=== PATIENT | female | born 1965 | race Caucasian/White ===

== ENCOUNTER 2016-03-16 04:05 | Observation (INO) | payer BC ==
[2016-03-16] MEDS ORDERED: Sodium Chloride 0.9% 10 ML Syringe FLUSH PRN ×2 (04:53→17:22)
[2016-03-16] MEDS ORDERED: Ondansetron 4 MG/2 ML SDV IVPUSH ONE (04:57)
--- NOTE | 2016-03-16 04:58 | EDM.PDOC ---
ED HPI GI/ABDOMINAL - General Chief Complaint: Abdominal Pain Stated Complaint: Nausea/vomiting, diarrhea, abdominal pain Time Seen by Provider: 03/16/16 04:39 Source of Information: Reports: Patient, Family History Limitations: Reports: No limitations - History of Present Illness INITIAL COMMENTS - FREE TEXT/NARRATIVE: Patient reports abdominal pain since March 14. She is saying that it is getting worse and she is now nauseated with minimal emesis this morning. She has had prior bowel obstructions in the past. She states that after her hysterectomy she started having the obstructions. She denies fever, chills. Patient denies any other symptoms this am. Symptom Onset Date: 03/14/16 Timing/Duration: Reports: Gradual onset Location: periumbilical Quality: Reports: cramping Severity: moderate Improves with: Reports: defecating Worsens with: Reports: other (eating) Associated Symptoms (-Female): Reports: denies other symptoms - Related Data Allergies/ADRs: Allergies Allergy/AdvReac Type Severity Reaction Status Date / Time tramadol HCl [From Ultram] AdvReac Vomiting Verified 03/16/16 04:20 Home Meds: Home Meds Ascorbic Acid [C-500] 1,000 mg PO DAILY 03/20/15 [History] Aspirin [[place] Chewable Aspirin] 81 mg PO DAILY 03/20/15 [History] Cyclobenzaprine [Flexeril] 5 mg PO TID PRN 03/20/15 [History] Metoprolol Tartrate [Lopressor] 12.5 mg PO BID 03/20/15 [History] Nitroglycerin [Nitrostat] 0.4 mg SL Q5M PRN 03/20/15 [History] carBAMazepine [TEGretol XR] 400 mg PO DAILY 03/20/15 [History] Ondansetron [Zofran ODT] 4 mg PO Q8H PRN 12/08/15 [History] Prochlorperazine [Compazine] 5 mg PO Q8H PRN 12/08/15 [History] Past Medical History HEENT History: Reports: Impaired vision Cardiovascular History: Reports: High cholesterol, Hypertension, [place] Gastrointestinal History: Reports: Bowel obstruction Other Gastrointestinal 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 VITAMIN D DEFICIENCY - Past Surgical History Female Surgical History: Reports: Hysterectomy, Other (see below) Other Female Surgeries/Procedures: BREAST BIOPSY. BILATERAL SALPINGECTOMY, EXCISION OF UMBILICUS Other Musculoskeletal Surgeries/Procedures:: MUSCLE BIOPSY. BREAST BIOPSY. EXCISE LESION NECK/CHEST, SUBCUTAN (SEBACEOUS CYST, NECK Social & Family History - Family History Cardiac: Reports: OK - Tobacco Use Smoking Status *Q: Never Smoker - Caffeine Use Caffeine Use: Reports: Coffee, Soda, Tea - Recreational Drug Use Recreational Drug Use: No ED ROS GENERAL - Review of Systems Review Of Systems: See Below Constitutional: Reports: no symptoms HEENT: Reports: No symptoms Respiratory: Reports: no symptoms Cardiovascular: Reports: No symptoms Endocrine: Reports: no symptoms GI/Abdominal: Reports: Abdominal pain, Diarrhea, Nausea, Vomiting : Reports: no symptoms Musculoskeletal: Reports: no symptoms Skin: Reports: no symptoms Neurological: Reports: no symptoms Psychiatric: Reports: No symptoms Hematologic/Lymphatic: Reports: no symptoms Immunologic: Reports: no symptoms ED EXAM, GI/ABD - Physical Exam Exam: See Below Exam Limited By: No limitations General Appearance: alert, WD/WN, no apparent distress Eyes: bilateral: EOMI Ears: normal TMs Nose: normal inspection Throat/Mouth: Normal inspection, Normal oropharynx Head: atraumatic, normocephalic Neck: normal inspection, supple, non-tender, full range of motion Respiratory/Chest: no respiratory distress, lungs clear, normal breath sounds Cardiovascular: normal peripheral pulses, regular rate, rhythm, no edema, no gallop GI/Abdominal: tympanic bowel sounds, tenderness, distention Extremities: normal inspection, normal range of motion, non-tender, no pedal edema, normal capillary refill Neurological: alert, oriented, CN II-XII intact, normal cognition, normal gait Psychiatric: normal affect Skin Exam: Warm, Dry, Intact Lymphatic: no adenopathy Course - Vital Signs Last Recorded V/S: Last Vital Signs Temp 38.0 C 03/16/16 04:10 Pulse 90 03/16/16 04:10 Resp 16 03/16/16 04:10 BP 123/72 03/16/16 04:10 Pulse Ox 94 L 03/16/16 04:10 Departure - Departure Time of Disposition: 06:30 Disposition: Refer to Observation Condition: good Clinical Impression: Partial small bowel obstruction Forms: ED Department Discharge - Problem List & Annotations (1) Small bowel obstruction SNOMED Code(s): 146013288 Code(s): K56.69 - OTHER INTESTINAL OBSTRUCTION Status: Acute Priority: Medium Current Visit: Yes - Problem List Review Problem List Initiated/Reviewed/Updated: Yes - Assessment/Plan Plan: admit to observation - small bowel obstruction
[2016-03-16 05:38] LABS: BASOPHILS PERCENT AUTO 0.1 % (0.2-1.2); EOSINOPHILS PERCENT AUTO 0.2 % (0.0-4.0); HEMATOCRIT 43.7 % (33.0-47.0); HEMOGLOBIN 14.3 g/dL (12.0-16.0); LYMPHOCYTES PERCENT AUTO 6.5 % (25.0-50.0); MEAN CORPUSCULAR HEMOGLOBIN 29.7 pg (26.0-32.0); MEAN CORPUSCULAR HGB CONC 32.7 g/dL (32.0-36.0); MEAN CORPUSCULAR VOLUME 90.9 fL (78.0-93.0); MONOCYTES PERCENT AUTO 6.5 % (2.0-11.0); RDW CV 14.4 % (10.0-15.0); RED BLOOD CELL COUNT 4.81 x10^6/uL (4.00-5.50)
[2016-03-16] MEDS: Sodium Chloride 0.9% 1,000 ML IV SCH ×2 (05:55→06:46)
[2016-03-16 05:58] LABS: NEUTROPHILS PERCENT AUTO 86.7 % (50.0-80.0)
[2016-03-16 06:04] LABS: A/G RATIO 1.03; ALBUMIN 3.6 g/dL (3.4-5.0); ALKALINE PHOSPHATASE 204 U/L (46-116); AMYLASE 34 U/L (25-115); BILIRUBIN TOTAL 0.5 mg/dL (0.2-1.0); C-REACTIVE PROTEIN 4.7 mg/dL (<=0.9); CALCIUM 9.3 mg/dL (8.5-10.1); CHLORIDE,CL 106 mmol/L (98-107); CORRECTED CALCIUM 9.62 mg/dL (8.5-10.1); CREATININE 0.6 mg/dL (0.55-1.02); EST CRCL DRUG DOSING (CG) 87.73 mL/min; ESTIMATED GFR > 60; GLUCOSE RANDOM 131 mg/dL (74-106)
[2016-03-16 06:05] LABS: TROPONIN I < 0.017 ng/mL (<=0.056)
[2016-03-16] MEDS ORDERED: Ondansetron 4 MG/2 ML SDV IVPUSH PRN (07:36)
[2016-03-16] MEDS ORDERED: Metoclopramide 10 MG/2 ML SDV IVPUSH ONE (07:37)
[2016-03-16] MEDS ORDERED: Sodium Chloride 0.9% 100 ML IV ONE (07:45)
[2016-03-16] MEDS ORDERED: Iopamidol 612 MG/ML 100 ML Bottle IVPUSH ONE (07:45)
[2016-03-16] MEDS ORDERED: Morphine 4 MG/ML Syringe IVPUSH PRN (09:00)
[2016-03-16] MEDS: Sodium Chloride 0.9% with KCl 1,000 ML IV SCH ×2 (09:20→13:20)
[2016-03-16] MEDS ORDERED: Ondansetron 4 MG Tab.DIS PO PRN (11:21)
[2016-03-16] MEDS: carBAMazepine 100 MG Cap.ER PO SCH (11:42)
[2016-03-16] MEDS: Dicyclomine 10 MG Cap PO PRN (11:42)
[2016-03-16] MEDS: Metoprolol Tartrate 25 MG Tab PO SCH ×3 (11:43→21:16)
[2016-03-16] MEDS ORDERED: Dicyclomine 20 MG/2 ML SDV IM SCH (12:00)
[2016-03-16] MEDS ORDERED: Dicyclomine 20 MG/2 ML SDV SCH (12:00)
--- NOTE | 2016-03-16 17:09 | PN ---
Progress Note for ZAKI POON Date: 03/16/2016 Room #: VM.212 SUBJECTIVE: The patient was admitted last evening with complaints of abdominal pain. She was seen by Nitish Kramer. Please refer to his admission H and P regarding this patient. The patient states that she has been experiencing discomfort since 03/14/2016, and the pain has been getting gradually worse. She does have a history of previous bowel obstructions. Plain film radiographs of the patient's abdomen did reveal small bowel obstruction versus ileus. The patient has been kept n.p.o. and has been receiving IV fluids. She was hypokalemic, and her potassium is being repleted. She did also have a CT scan of her abdomen and pelvis with IV contrast, which revealed evidence of an ileus or enteritis as opposed to a small bowel obstruction. Her nausea is well controlled with IV Reglan and Zofran. OBJECTIVE: General: This is a 50-year-old female patient. No acute distress. Vital Signs: Blood pressure is 117/45, respiratory rate 16, O2 saturations 95%, temperature is 37. SKIN: Warm, pink, and dry. HEENT: Head is normocephalic and atraumatic. Mouth, oral mucosa is moist. No erythema or exudate noted of hypopharynx. Neck: Supple without masses. There is no lymphadenopathy. Lungs: Clear to auscultation. Heart: Regular rate and rhythm. She does have a grade 2 murmur. Abdomen: Mildly distended. There are no masses noted. There is no hepatosplenomegaly noted. Bowel sounds are high pitched and normoactive. ASSESSMENT: Ileus secondary to gastroenteritis. PLAN: As the patient is no longer experiencing any nausea, her diet will be advanced to clear liquids. We will re-evaluate in the morning to see if she is a candidate for discharge. This evening, we may advance her diet further to include bland solid foods. We will repeat labs and abdominal series in the morning. All questions were answered. MWK: 03/16/2016 16:44:18 MODL: 03/16/2016 16:57:57 /[id number] DANN
[2016-03-17] MEDS: Dicyclomine 10 MG Cap PO PRN (00:09)
[2016-03-17] MEDS: Metoprolol Tartrate 25 MG Tab PO SCH (08:37)
[2016-03-17] MEDS: carBAMazepine 100 MG Cap.ER PO SCH (08:38)
[2016-03-17 10:50] VITALS: BP 108/66
== END 2016-03-17 10:55 | disposition home or self-care (01) ==
LOC: VM.ED 04:05 → VM.MS 06:05
PROVIDERS: ADMIT Nurse Practitioner Family; ATTEND Nurse Practitioner Family
DX: K56.69 Other intestinal obstruction (principal); I10 Essential (primary) hypertension; E78.00 Pure hypercholesterolemia, unspecified; Z90.710 Acquired absence of both cervix and uterus; E55.9 Vitamin D deficiency, unspecified; E87.6 Hypokalemia; Z88.8 Allergy status to other drugs, medicaments and biological substances; Z79.82 Long term (current) use of aspirin; Z79.899 Other long term (current) drug therapy
CPT/HCPCS: 36415; 74020; 74177; 80053; 82150; 83690; 84484; 85025; 86140; 96361; 96374; 99284; A9270; J2270; J2405; J2765; J3480; J7030; J7050; Q9967; 96375; G0378

== ENCOUNTER 2016-11-02 17:35 | Emergency (ER) | payer BC ==
[2016-11-02] MEDS ORDERED: Sodium Chloride 0.9% 10 ML Syringe FLUSH PRN (17:44)
[2016-11-02 17:51] VITALS: BP 143/98
[2016-11-02 18:23] LABS: CHLORIDE,CL 105 mmol/L (98-107); SODIUM,NA 143 mmol/L (136-145)
[2016-11-02] MEDS ORDERED: Morphine 10 MG/ML Syringe IV ONE (19:11)
--- NOTE | 2016-11-02 19:44 | EDM.PDOC ---
ED HPI GENERAL MEDICAL PROBLEM - General Chief Complaint: Gastrointestinal Problem Time Seen by Provider: 11/02/16 18:55 Source of Information: Reports: Patient History Limitations: Reports: No Limitations - History of Present Illness Onset: Today - Related Data Allergies Allergy/AdvReac Type Severity Reaction Status Date / Time tramadol HCl [From Ultram] AdvReac Vomiting Verified 11/02/16 17:46 Home Meds: Home Meds Ascorbic Acid [C-500] 1,000 mg PO DAILY 03/20/15 [History] Cyclobenzaprine [Flexeril] 5 mg PO TID PRN 03/20/15 [History] Metoprolol Tartrate [Lopressor] 12.5 mg PO BID 03/20/15 [History] Nitroglycerin [Nitrostat] 0.4 mg SL Q5M PRN 03/20/15 [History] carBAMazepine [TEGretol XR] 400 mg PO DAILY 03/20/15 [History] Ondansetron [Zofran ODT] 4 mg PO Q8H PRN 12/08/15 [History] Prochlorperazine [Compazine] 5 mg PO Q8H PRN 12/08/15 [History] Aspirin [Halfprin] 81 mg PO DAILY 03/17/16 [History] Past Medical History HEENT History: Reports: Impaired Vision Cardiovascular History: Reports: High Cholesterol, Hypertension, [place] Gastrointestinal History: Reports: Bowel Obstruction Other 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 VITAMIN D DEFICIENCY - Past Surgical History Female Surgical History: Reports: Hysterectomy, Other (See Below) Other Musculoskeletal Surgeries/Procedures:: MUSCLE BIOPSY. BREAST BIOPSY. EXCISE LESION NECK/CHEST, SUBCUTAN (SEBACEOUS CYST, NECK Social & Family History - Family History Cardiac: Reports: ID - Tobacco Use Smoking Status *Q: Unknown Ever Smoked - Caffeine Use Caffeine Use: Reports: Coffee, Soda, Tea - Recreational Drug Use Recreational Drug Use: No ED ROS GENERAL - Review of Systems Review Of Systems: See Below Constitutional: Reports: No Symptoms HEENT: Reports: No Symptoms Respiratory: Reports: No Symptoms Cardiovascular: Reports: No Symptoms Endocrine: Reports: No Symptoms GI/Abdominal: Reports: Abdominal Pain, Nausea, Vomiting : Reports: No Symptoms Musculoskeletal: Reports: No Symptoms Skin: Reports: No Symptoms Neurological: Reports: No Symptoms Psychiatric: Reports: No Symptoms Hematologic/Lymphatic: Reports: No Symptoms Immunologic: Reports: No Symptoms ED EXAM, GI/ABD - Physical Exam Exam: See Below Exam Limited By: No Limitations General Appearance: Alert, WD/WN, Mild Distress Eyes: Bilateral: EOMI Ears: Normal TMs Respiratory/Chest: No Respiratory Distress, Lungs Clear, Normal Breath Sounds, No Accessory Muscle Use Cardiovascular: Normal Peripheral Pulses, Regular Rate, Rhythm, No Edema GI/Abdominal Exam: Rigid, Tender, Abnormal Bowel Sounds (hypoactive) Course - Vital Signs Text/Narrative:: Please see Wally Navarro's note for additional information. I did take over care at shift change at 1900. Patient reported on and transferred to [facility] with Dr. Bazzi the accepting doctor. Last Recorded V/S: Last Vital Signs Temp 37.4 C 11/02/16 17:35 Pulse 107 H 11/02/16 17:35 Resp 16 11/02/16 17:35 BP 143/98 H 11/02/16 17:35 Pulse Ox 94 L 11/02/16 17:35 - Orders/Labs/Meds Orders: Active Orders 24 hr Category Date Time Status Abdomen Pelvis w Cont [CT] Stat Exams 11/02/16 18:05 Taken UA W/MICROSCOPIC [URIN] Stat Lab 11/02/16 19:35 Ordered Sodium Chloride 0.9% [Saline Flush] Med 11/02/16 17:44 Active 10 ml FLUSH ASDIRECTED PRN Peripheral IV Insertion Adult [OM.PC] Routine Oth 11/02/16 17:46 Ordered Medication Orders Sodium Chloride (Saline Flush) 10 ml FLUSH ASDIRECTED PRN PRN Reason: Keep Vein Open Labs: Laboratory Tests 11/02/16 11/02/16 11/02/16 Range/Units 17:57 17:57 17:57 WBC 18.5 H (4.0-10.0) x10^3/uL RBC 4.91 (4.00-5.50) x10^6/uL Hgb 15.2 (12.0-16.0) g/dL Hct 46.5 (33.0-47.0) % MCV 94.7 H D (78.0-93.0) fL MCH 31.0 (26.0-32.0) pg MCHC 32.7 (32.0-36.0) g/dL RDW Coeff of Jose David 14.3 (10.0-15.0) % Plt Count 391 D (130-400) x10^3/uL Add Manual Diff Yes Neutrophils % (Manual) 83 H (50-80) % Band Neutrophils % 6 (0-6) % Lymphocytes % (Manual) 7 L (25-50) % Monocytes % (Manual) 4 (2-11) % Platelet Estimate Increased H Giant Platelets Rare H Macrocytosis 1+ slight H PT 9.2 L (9.8-11.8) SEC INR 0.9 L (2.0-3.5) Sodium 143 (136-145) mmol/L Potassium 3.7 (3.5-5.1) mmol/L Chloride 105 (98-107) mmol/L Carbon Dioxide 24 (21-32) mmol/L BUN 22 H (7-18) mg/dL Creatinine 0.9 (0.55-1.02) mg/dL Est Cr Clr Drug Dosing TNP Estimated GFR (MDRD) > 60 Glucose 126 H (74-106) mg/dL Lactic Acid (0.4-2.0) mmol/L Calcium 9.8 (8.5-10.1) mg/dL Corrected Calcium 10.04 (8.5-10.1) mg/dL Total Bilirubin 0.4 (0.2-1.0) mg/dL AST 32 (15-37) U/L ALT 101 H (14-59) U/L Alkaline Phosphatase 256 H (46-116) U/L C-Reactive Protein 6.6 H (<=0.9) mg/dL Total Protein 8.1 (6.4-8.2) g/dL Albumin 3.7 (3.4-5.0) g/dL Globulin 4.4 Albumin/Globulin Ratio 0.84 Amylase 73 (25-115) U/L 11/02/16 Range/Units 17:57 WBC (4.0-10.0) x10^3/uL RBC (4.00-5.50) x10^6/uL Hgb (12.0-16.0) g/dL Hct (33.0-47.0) % MCV (78.0-93.0) fL MCH (26.0-32.0) pg MCHC (32.0-36.0) g/dL RDW Coeff of Jose David (10.0-15.0) % Plt Count (130-400) x10^3/uL Add Manual Diff Neutrophils % (Manual) (50-80) % Band Neutrophils % (0-6) % Lymphocytes % (Manual) (25-50) % Monocytes % (Manual) (2-11) % Platelet Estimate Giant Platelets Macrocytosis PT (9.8-11.8) SEC INR (2.0-3.5) Sodium (136-145) mmol/L Potassium (3.5-5.1) mmol/L Chloride (98-107) mmol/L Carbon Dioxide (21-32) mmol/L BUN (7-18) mg/dL Creatinine (0.55-1.02) mg/dL Est Cr Clr Drug Dosing Estimated GFR (MDRD) Glucose (74-106) mg/dL Lactic Acid 2.8 H (0.4-2.0) mmol/L Calcium (8.5-10.1) mg/dL Corrected Calcium (8.5-10.1) mg/dL Total Bilirubin (0.2-1.0) mg/dL AST (15-37) U/L ALT (14-59) U/L Alkaline Phosphatase (46-116) U/L C-Reactive Protein (<=0.9) mg/dL Total Protein (6.4-8.2) g/dL Albumin (3.4-5.0) g/dL Globulin Albumin/Globulin Ratio Amylase (25-115) U/L Meds: Medications Generic Name Dose Route Start Last Admin Trade Name Freq PRN Reason Stop Dose Admin Sodium Chloride 10 ml 11/02/16 17:44 Saline Flush FLUSH ASDIRECTED PRN Keep Vein Open Discontinued Medications Generic Name Dose Route Start Last Admin Trade Name Freq PRN Reason Stop Dose Admin Morphine Sulfate 2 mg 11/02/16 19:11 11/02/16 19:31 Morphine IV 11/02/16 19:12 2 mg ONETIME ONE Administration Departure - Departure Time of Disposition: 20:30 Disposition: DC/Tfer to Acute Hospital 02 Condition: Good Clinical Impression: Small bowel obstruction - Discharge Information Instructions: Small Bowel Obstruction, [id number] Referrals: Arabella Sousa, [employer] RENTAL CLERK [Primary Care Provider] - Forms: ED Department Discharge, Interfacility Transfer EMTALA ED Communication - Discussed Case With (1) Discussed Case With (1): Admitting Provider (Dr. Ventura at [facility]. Orders for blood culture, zosyn. Also wanted NG and fluids, patient going private vehicle so will not do these and this was relayed to her.)
[2016-11-02] MEDS ORDERED: Piperacillin/Tazobactam 4.5 GM in Sodium Chloride 0.9% 100 ML IV ONE (19:46)
--- NOTE | 2016-11-02 20:22 | ER ---
Date of Service: 11/02/2016 SUBJECTIVE: Ángela presents to the emergency room with complaints of abdominal pain. She was initially seen at [facility] here in [place] and was evaluated. She did have a CBC there which did show an elevated white count. No other labs were performed. They stated that they did do a plain film x-ray which showed "obstruction," but they did not send a copy of the images or the results. The patient has a history of bowel obstructions in the past. She was admitted in March. At that time, she was kept n.p.o. and was thought to have ileus. Her symptoms did resolve, and she was able to keep down food and liquids at that time. She states that she has not had any issues with bowel obstruction or ileus since that time. PAST MEDICAL HISTORY: 1. Bowel obstruction. 2. Hysterectomy. 3. Dyslipidemia. 4. Coronary artery disease. 5. Hypertension. 6. Muscular dystrophy. 7. History of hypoglycemia. 8. Vitamin D deficiency. 9. History of hypokalemia. MEDICATIONS: 1. Tegretol XR 400 mg p.o. daily. 2. Compazine 5 mg p.o. q.8 hours p.r.n. 3. Zofran ODT 4 mg q.8 hours p.r.n. 4. Lopressor 12.5 mg p.o. b.i.d. 5. Flexeril 5 mg p.o. t.i.d. 6. Aspirin 81 mg p.o. daily. 7. Ascorbic acid 1000 mg p.o. daily. ALLERGIES: To tramadol. REVIEW OF SYSTEMS: General: Denies any fever or chills. HEENT: No sore throat, rhinorrhea, or congestion. Respiratory: No shortness of breath. Cardiac: Denies any substernal chest pain. No jaw, arm, neck, or back pain. Gastrointestinal: Positive for diffuse abdominal pain, worse in the upper quadrants. Denies any melena, hematochezia, or hematemesis. She states her last oral intake was a shake at noon, which she states she vomited. Neurologic: No fainting, blackouts, or lightheadedness. PHYSICAL EXAMINATION: General: This is a 51-year-old female patient, who is in [id number] distress. Vital Signs: Blood pressure is 143/98, heart rate is 107, temp is 37.4, respiratory rate 16, and O2 saturations 94%. Skin: Warm, pink, and dry. HEENT. Head is normocephalic, atraumatic. Mouth: Oral mucosa is moist. Lungs: Clear to auscultation. Heart: Regular rate and rhythm. Abdomen: Soft, diffusely tender in the upper quadrants. It is somewhat distended. Her bowel sounds are hypoactive. She does have a history of having a distended abdomen, however. Extremities: Without edema. LABORATORY DATA: WBC is 18.5, hemoglobin is 15.2, platelets are 391. Coags: PT is 9.2, INR is 0.9. Chemistry: Sodium is 143, potassium is 3.7, chloride is 105, bicarb is 24, BUN is 22, creatinine is 0.9. GFR is greater than 60. Glucose is 126, lactic acid is 2.8, calcium is 10.02, total bilirubin is 0.4, AST is 32, ALT is 101, alkaline phosphatase is 256, C-reactive protein is 6.6, total protein is 8.1, albumin is 3.7, amylase is 93. CT scan of the patient's abdomen and pelvis with IV contrast was obtained and the results are pending. ASSESSMENT: Abdominal pain, likely secondary to bowel obstruction. PLAN: Please refer to Gilson Kramer's documentation regarding the disposition of this patient. MWK: 11/02/2016 19:31:58 MODL: 11/02/2016 20:17:53 /[id number]
[2016-11-02] MEDS ORDERED: Ondansetron 4 MG/2 ML SDV IVPUSH ONE (20:36)
== END 2016-11-02 20:48 | disposition short-term general hospital (02) ==
LOC: VM.ED 17:35
DX: R10.9 Unspecified abdominal pain (principal); E78.5 Hyperlipidemia, unspecified; I25.10 Atherosclerotic heart disease of native coronary artery without angina pectoris; I10 Essential (primary) hypertension; Z90.710 Acquired absence of both cervix and uterus; Z79.899 Other long term (current) drug therapy; Z88.5 Allergy status to narcotic agent
CPT/HCPCS: 36415; 74177; 80053; 81001; 82150; 83605; 85025; 85610; 86140; 87040; 96365; 96375; 99285; J2270; J2405; J2543; J7050

== ENCOUNTER 2017-11-26 08:51 | Day surgery (SDC) | payer BC ==
[~2017-11-26 08:51] MED LIST: Lactated Ringers 1,000 ML IV SCH
[2017-11-26] MEDS ORDERED: Propofol 200 MG/20 ML SDV ONE (10:18)
[2017-11-26 11:24] VITALS: BP 129/60
--- NOTE | 2017-11-26 14:36 | OR ---
PREOP DIAGNOSIS: Screening colonoscopy. POSTOP DIAGNOSIS: Screening colonoscopy. PROCEDURE PERFORMED: Screening colonoscopy. INDICATION: The patient is a 52-year-old female, who presents for first screening colonoscopy at this time. PROCEDURE DETAILS: This was done in the endoscopy suite. Sedation was given per Anesthesia. She was placed in the left lateral position. First, a rectal exam was done, and was normal. Scope was introduced into the rectum, slowly advanced to the rectum, sigmoid, descending, transverse, and ascending colon until the cecum was reached. Upon reaching the cecum, scope was slowly withdrawn looking at all mucosal surfaces on the way out. No mucosal abnormalities, lesions, or polyps were noted. FINAL DIAGNOSIS: Normal colonoscopy. BKD: 11/26/2017 11:06:54 MODL: 11/26/2017 11:53:28 /[id number]
== END 2017-11-26 12:10 | disposition home or self-care (01) ==
LOC: VM.SDS 08:51
PROVIDERS: ATTEND Surgery
DX: Z12.11 Encounter for screening for malignant neoplasm of colon (principal); E83.42 Hypomagnesemia; E83.39 Other disorders of phosphorus metabolism; E87.6 Hypokalemia; G71.11 Myotonic muscular dystrophy; K56.600 Partial intestinal obstruction, unspecified as to cause; Z79.82 Long term (current) use of aspirin; Z79.899 Other long term (current) drug therapy; Z88.5 Allergy status to narcotic agent; Z88.6 Allergy status to analgesic agent
CPT/HCPCS: J2704; J7120

== ENCOUNTER 2018-03-29 00:32 | Inpatient (IN) | payer BC ==
[2018-03-29] MEDS ORDERED: Sodium Chloride 0.9% 10 ML Syringe FLUSH PRN (00:56)
[2018-03-29] MEDS ORDERED: Sodium Chloride 0.9% 1,000 ML IV ONE (00:56)
[2018-03-29] MEDS ORDERED: Ondansetron 4 MG/2 ML SDV IVPUSH ONE (00:56)
[2018-03-29] MEDS ORDERED: HYDROmorphone 1 MG/ML Syringe IVPUSH ONE (01:15)
[2018-03-29 02:06] LABS: ANION GAP 14.7 mmol/L (10-20); CHLORIDE,CL 106 mmol/L (98-107); SODIUM,NA 144 mmol/L (136-145)
[2018-03-29] MEDS ORDERED: Iopamidol 612 MG/ML 100 ML Bottle IVPUSH ONE (02:40)
[2018-03-29] MEDS ORDERED: Metoclopramide 10 MG/2 ML SDV IVPUSH ONE (04:08)
[2018-03-29] MEDS ORDERED: Morphine 4 MG/ML Syringe IVPUSH PRN (04:25)
--- NOTE | 2018-03-29 04:47 | EDM.PDOC ---
ED HPI GENERAL MEDICAL PROBLEM - General Chief Complaint: Abdominal Pain Stated Complaint: abdominal pain, history of bowel obstruction Time Seen by Provider: 03/29/18 00:50 Source of Information: Reports: Patient History Limitations: Reports: No Limitations - History of Present Illness INITIAL COMMENTS - FREE TEXT/NARRATIVE: Pt. presents to ER with complaints of abdominal pain. Pt. is concerned that she may have a bowel obstruction. Pt. has had previous bowel obstructions in the past, the last one being approx. 3 months ago. This resolved without surgery. She was hydrated and treated with IV reglan and was discharged after approx. 48 hours completely. Pt. states that she has been experiencing diffuse abdominal discomfort and minimal bowel activity approx. 3 days ago. Denies any fever or chlls. She states that she vomited 3 times at home. Denies any bloody or dark stools. No diaphoresis. She states that she did have a small bowel movement earlier in the day. Onset Date: 03/26/18 Location: Reports: Abdomen Quality: Reports: Ache, Pressure Severity: Severe Upper Abdomen Pain Score (Numeric/FACES): 8 - Related Data Allergies Allergy/AdvReac Type Severity Reaction Status Date / Time hydromorphone [From Dilaudid] AdvReac Nausea Verified 03/29/18 00:33 tramadol HCl [From Ultram] AdvReac Vomiting Verified 03/29/18 00:33 Home Meds: Home Meds Cyclobenzaprine [Flexeril] 5 mg PO TID PRN 03/20/15 [History] Aspirin [Halfprin] 81 mg PO DAILY 03/17/16 [History] Estradiol 1 mg PO ASDIRECTED 11/20/17 [History] Ibuprofen [Advil] 200 mg PO Q6H PRN 11/20/17 [History] Ibuprofen/Diphenhydramine Cit [Advil Pm Caplet] 1 tab PO BEDTIME PRN 11/20/17 [ History] Ascorbic Acid/Multivit-Min [Emergen-C 1,000 mg Packet] 1,000 mg PO DAILY [History] L.acidoph,Paracasei, B.lactis [Probiotic] 1 cap PO DAILY 01/06/18 [History] Ondansetron [Zofran ODT] 4 mg PO Q4H PRN 01/06/18 [History] Acetaminophen [Tylenol] 650 mg PO Q4H PRN #30 tablet 01/09/18 [Rx] Past Medical History HEENT History: Reports: Impaired Vision Cardiovascular History: Reports: High Cholesterol, Hypertension, [place] Respiratory History: Reports: Sleep Apnea Gastrointestinal History: Reports: Bowel Obstruction Other Gastrointestinal History: partial bowel obstruction Genitourinary History: Reports: None SECURITY OFFICER History: Reports: Other (See Below) Other SECURITY OFFICER History: hysterectomy Musculoskeletal History: Reports: Muscular Dystrophy Other Musculoskeletal History: myotonic muscular dystrophy Neurological History: Reports: None Psychiatric History: Reports: None Endocrine/Metabolic History: Reports: Vitamin D Deficiency Other Endocrine/Metabolic History: hypoglycemia Other Hematologic History: hypomagnesemia. hypophosphatemia. hypokalemia,. vitamin d deficiency Immunologic History: Reports: None Oncologic (Cancer) History: Reports: None Other Dermatologic History: sebaceous cyst - Past Surgical History Head Surgeries/Procedures: Reports: None Female Surgical History: Reports: Hysterectomy, Other (See Below) Other Female Surgeries/Procedures: BREAST BIOPSY. BILATERAL SALPINGECTOMY, EXCISION OF UMBILICUS Other Musculoskeletal Surgeries/Procedures:: MUSCLE BIOPSY. BREAST BIOPSY. EXCISE LESION NECK/CHEST, SUBCUTAN (SEBACEOUS CYST, NECK Social & Family History - Family History Family Medical History: Noncontributory Cardiac: Reports: ME - Tobacco Use Smoking Status *Q: Never Smoker - Caffeine Use Caffeine Use: Reports: Soda ED ROS GENERAL - Review of Systems Review Of Systems: See Below Constitutional: Reports: No Symptoms HEENT: Reports: No Symptoms Respiratory: Reports: No Symptoms Cardiovascular: Reports: No Symptoms Endocrine: Reports: No Symptoms GI/Abdominal: Reports: Abdominal Pain, Vomiting. Denies: Flatus : Reports: No Symptoms Musculoskeletal: Reports: No Symptoms Skin: Reports: No Symptoms Neurological: Reports: No Symptoms Psychiatric: Reports: No Symptoms Hematologic/Lymphatic: Reports: No Symptoms Immunologic: Reports: No Symptoms ED EXAM, GENERAL - Physical Exam Exam: See Below Exam Limited By: No Limitations General Appearance: Alert, WD/WN, No Apparent Distress Throat/Mouth: Normal Inspection, Normal Lips, Normal Teeth, Normal Gums, Normal Oropharynx, Normal Voice, No Airway Compromise Head: Atraumatic, Normocephalic Neck: Normal Inspection, Supple, Non-Tender, Full Range of Motion Respiratory/Chest: No Respiratory Distress, Lungs Clear, Normal Breath Sounds, No Accessory Muscle Use, Chest Non-Tender Cardiovascular: Normal Peripheral Pulses, Regular Rate, Rhythm, No Edema, No Gallop, No JVD, No Murmur, No Rub Peripheral Pulses: 4+: Radial (L), Radial (R) GI/Abdominal: Soft, Tender, Abnormal Bowel Sounds (present but diminished bowel sounds). No: Guarding, Rigid, Rebound (Female) Exam: Deferred Rectal (Female) Exam: Deferred Back Exam: Normal Inspection Extremities: Normal Inspection, Normal Capillary Refill Neurological: Alert, Oriented, CN II-XII Intact, Normal Cognition, Normal Reflexes, No Motor/Sensory Deficits Skin Exam: Warm, Dry, Intact, No Rash, Pallor Course - Vital Signs Last Recorded V/S: Last Vital Signs Temp 37.0 C 03/29/18 00:34 Pulse 90 03/29/18 00:34 Resp 16 03/29/18 00:34 BP 180/84 H 03/29/18 00:34 Pulse Ox 95 03/29/18 00:34 - Orders/Labs/Meds Orders: Active Orders 24 hr Category Date Time Status Patient Status [ADT] Routine ADT 03/29/18 04:07 Active Abdomen Pelvis w Cont [CT] Stat Exams 03/29/18 02:11 Ordered CULTURE BLOOD [BC] Stat Lab 03/29/18 01:23 Results CULTURE BLOOD [BC] Stat Lab 03/29/18 01:31 Received UA W/MICROSCOPIC [URIN] Stat Lab 03/29/18 00:56 Ordered Sodium Chloride 0.9% [Saline Flush] Med 03/29/18 00:56 Active 10 ml FLUSH ASDIRECTED PRN Blood Culture x2 Reflex Set [OM.PC] Stat Oth 03/29/18 01:04 Ordered Peripheral IV Insertion Adult [OM.PC] Routine Oth 03/29/18 00:56 Ordered Medication Orders Lactated Ringer's (Ringers, Lactated) 1,000 mls @ 125 mls/hr IV ASDIRECTED IRINA Metoclopramide HCl (Reglan) 5 mg IVPUSH Q4H IRINA Morphine Sulfate (Morphine) 4 mg IVPUSH Q2H PRN PRN Reason: Abdominal Pain Ondansetron HCl (Zofran) 4 mg IVPUSH Q8H IRINA Sodium Chloride (Saline Flush) 10 ml FLUSH ASDIRECTED PRN PRN Reason: Keep Vein Open Last Admin: 03/29/18 01:12 Dose: 10 ml Labs: Laboratory Tests 03/29/18 03/29/18 03/29/18 Range/Units 01:23 01:23 01:23 WBC 10.3 H (4.0-10.0) x10^3/uL RBC 4.24 (4.00-5.50) x10^6/uL Hgb 12.9 D (12.0-16.0) g/dL Hct 40.4 (33.0-47.0) % MCV 95.3 H (78.0-93.0) fL MCH 30.4 (26.0-32.0) pg MCHC 31.9 L (32.0-36.0) g/dL RDW Coeff of Jose David 14.0 (10.0-15.0) % Plt Count 264 D (130-400) x10^3/uL Neut % (Auto) 84.6 H (50.0-80.0) % Lymph % (Auto) 9.6 L (25.0-50.0) % Yell % (Auto) 5.4 (2.0-11.0) % Eos % (Auto) 0.3 (0.0-4.0) % Baso % (Auto) 0.1 L (0.2-1.2) % PT 9.9 (9.6-11.4) SEC INR 0.9 L (2.0-3.5) Sodium 144 (136-145) mmol/L Potassium 3.7 (3.5-5.1) mmol/L Chloride 106 (98-107) mmol/L Carbon Dioxide 27 (21-32) mmol/L Anion Gap 14.7 (10-20) mmol/L BUN 22 H (7-18) mg/dL Creatinine 0.6 (0.55-1.02) mg/dL Est Cr Clr Drug Dosing 85.76 mL/min Estimated GFR (MDRD) > 60 Glucose 116 H (74-106) mg/dL Lactic Acid (0.4-2.0) mmol/L Calcium 9.7 (8.5-10.1) mg/dL Corrected Calcium 10.18 H (8.5-10.1) mg/dL Phosphorus 4.6 (2.6-4.7) mg/dL Magnesium 2.1 (1.8-2.4) mg/dL Total Bilirubin 0.5 (0.2-1.0) mg/dL AST 23 (15-37) U/L ALT 54 (14-59) U/L Alkaline Phosphatase 185 H (46-116) U/L C-Reactive Protein 2.8 H (<=0.9) mg/dL Total Protein 7.1 (6.4-8.2) g/dL Albumin 3.4 (3.4-5.0) g/dL Globulin 3.7 Albumin/Globulin Ratio 0.92 03/29/18 Range/Units 01:23 WBC (4.0-10.0) x10^3/uL RBC (4.00-5.50) x10^6/uL Hgb (12.0-16.0) g/dL Hct (33.0-47.0) % MCV (78.0-93.0) fL MCH (26.0-32.0) pg MCHC (32.0-36.0) g/dL RDW Coeff of Jose David (10.0-15.0) % Plt Count (130-400) x10^3/uL Neut % (Auto) (50.0-80.0) % Lymph % (Auto) (25.0-50.0) % Yell % (Auto) (2.0-11.0) % Eos % (Auto) (0.0-4.0) % Baso % (Auto) (0.2-1.2) % PT (9.6-11.4) SEC INR (2.0-3.5) Sodium (136-145) mmol/L Potassium (3.5-5.1) mmol/L Chloride (98-107) mmol/L Carbon Dioxide (21-32) mmol/L Anion Gap (10-20) mmol/L BUN (7-18) mg/dL Creatinine (0.55-1.02) mg/dL Est Cr Clr Drug Dosing mL/min Estimated GFR (MDRD) Glucose (74-106) mg/dL Lactic Acid 0.8 (0.4-2.0) mmol/L Calcium (8.5-10.1) mg/dL Corrected Calcium (8.5-10.1) mg/dL Phosphorus (2.6-4.7) mg/dL Magnesium (1.8-2.4) mg/dL Total Bilirubin (0.2-1.0) mg/dL AST (15-37) U/L ALT (14-59) U/L Alkaline Phosphatase (46-116) U/L C-Reactive Protein (<=0.9) mg/dL Total Protein (6.4-8.2) g/dL Albumin (3.4-5.0) g/dL Globulin Albumin/Globulin Ratio Meds: Medications Generic Name Dose Route Start Last Admin Trade Name Freq PRN Reason Stop Dose Admin Lactated Ringer's 1,000 mls @ 125 mls/hr 03/29/18 04:45 Ringers, Lactated IV ASDIRECTED IRINA Metoclopramide HCl 5 mg 03/29/18 09:00 Reglan IVPUSH Q4H IRINA Morphine Sulfate 4 mg 03/29/18 04:25 Morphine IVPUSH Q2H PRN Abdominal Pain Ondansetron HCl 4 mg 03/29/18 04:30 Zofran IVPUSH Q8H IRINA Sodium Chloride 10 ml 03/29/18 00:56 03/29/18 01:12 Saline Flush FLUSH 10 ml ASDIRECTED PRN Administration Keep Vein Open Discontinued Medications Generic Name Dose Route Start Last Admin Trade Name Freq PRN Reason Stop Dose Admin Hydromorphone HCl 1 mg 03/29/18 01:15 03/29/18 01:20 Dilaudid IVPUSH 03/29/18 01:16 1 mg ONETIME ONE Administration Sodium Chloride 1,000 mls @ 1,000 mls/hr 03/29/18 00:56 03/29/18 01:12 Normal Saline IV 03/29/18 01:55 1,000 mls/hr .BOLUS ONE Administration Iopamidol 100 ml 03/29/18 02:40 03/29/18 02:53 Isovue-300 (61%) IVPUSH 03/29/18 02:41 100 ml ONETIME ONE Administration Metoclopramide HCl 10 mg 03/29/18 04:08 03/29/18 04:15 Reglan IVPUSH 03/29/18 04:09 10 mg ONETIME ONE Administration Ondansetron HCl 4 mg 03/29/18 00:56 03/29/18 01:12 Zofran IVPUSH 03/29/18 00:57 4 mg ONETIME ONE Administration - Radiology Interpretation Free Text/Narrative:: uncomplicated bowel obstruction noted on CT Departure - Departure Time of Disposition: 04:20 Disposition: Admitted As Inpatient 65 Clinical Impression: Bowel obstruction, Abdominal pain, Vomiting - Discharge Information - My Orders Last 24 Hours: My Active Orders 03/29/18 00:56 UA W/MICROSCOPIC [URIN] Stat Sodium Chloride 0.9% [Saline Flush] 10 ml FLUSH ASDIRECTED PRN Peripheral IV Insertion Adult [OM.PC] Routine 03/29/18 01:04 Blood Culture x2 Reflex Set [OM.PC] Stat 03/29/18 01:23 CULTURE BLOOD [BC] Stat 03/29/18 01:31 CULTURE BLOOD [BC] Stat 03/29/18 02:11 Abdomen Pelvis w Cont [CT] Stat 03/29/18 04:07 Patient Status [ADT] Routine - Assessment/Plan Last 24 Hours: My Active Orders 03/29/18 00:56 UA W/MICROSCOPIC [URIN] Stat Sodium Chloride 0.9% [Saline Flush] 10 ml FLUSH ASDIRECTED PRN Peripheral IV Insertion Adult [OM.PC] Routine 03/29/18 01:04 Blood Culture x2 Reflex Set [OM.PC] Stat 03/29/18 01:23 CULTURE BLOOD [BC] Stat 03/29/18 01:31 CULTURE BLOOD [BC] Stat 03/29/18 02:11 Abdomen Pelvis w Cont [CT] Stat 03/29/18 04:07 Patient Status [ADT] Routine Plan: Pt. will be admitted acutely. She will be seen by Dr. Gerber in the AM for Dr. Powell. She states that she tolerates morphine well. Reglan 5 mg every 4 hours scheduled. She can have zofran for continued nausea/vomiting every 8 hours. LR at 125ml/hr. Pt. is a code level 1. All questions were answered. She will be kept NPO. NG will be placed if the patient begins vomiting.
[2018-03-29] MEDS: Ondansetron 4 MG/2 ML SDV IVPUSH SCH ×3 (04:56→19:41)
[2018-03-29] MEDS: Lactated Ringers 1,000 ML IV SCH ×3 (05:16→23:26)
[2018-03-29] MEDS: Metoclopramide 10 MG/2 ML SDV IVPUSH SCH ×4 (08:00→20:54)
--- NOTE | 2018-03-29 08:19 | PCM.HP ---
H&P History of Present Illness - General Date of Service: 03/29/18 Admit Problem/Dx: Admission Diagnosis/Problem Admission Diagnosis/Problem Abdominal pain Source of Information: Patient History Limitations: Reports: No Limitations - History of Present Illness Initial Comments - Free Text/Narative: Mrs. Becerril is a 52 yo female with PMH of recurrent bowel obstructions who presented to the ER last night for evaluation of 24 hours of generalized abdominal pain. This was associated with nausea, vomiting, and not passing any flatus. Last BM was earlier in the day before symptoms started. Pain is generalized and she has noticed some abdominal distension as well. She has not had any fever or chills. Symptoms are the same as when she has had bowel obstructions in the past. Home cares included OTC analgesics and bowel rest without relief in symptoms. She was admitted to the floor early this morning by the ER provider. She does feel her pain has worsened again but she has not requested any pain medication since she was in the ER. She is still nauseous but has not been vomiting at all. She did pass some gas last night but has not yet this am. Upper Abdomen Pain Score (Numeric/FACES): 2 - Related Data Allergies/Adverse Reactions: Allergies Allergy/AdvReac Type Severity Reaction Status Date / Time hydromorphone [From Dilaudid] AdvReac Nausea Verified 03/29/18 00:33 tramadol HCl [From Ultram] AdvReac Vomiting Verified 03/29/18 00:33 Home Medications: Home Meds Cyclobenzaprine [Flexeril] 5 mg PO TID PRN 03/20/15 [History] Aspirin [Halfprin] 81 mg PO DAILY 03/17/16 [History] Estradiol 1 mg PO ASDIRECTED 11/20/17 [History] Ibuprofen [Advil] 200 mg PO Q6H PRN 11/20/17 [History] Ibuprofen/Diphenhydramine Cit [Advil Pm Caplet] 1 tab PO BEDTIME PRN 11/20/17 [ History] Ascorbic Acid/Multivit-Min [Emergen-C 1,000 mg Packet] 1,000 mg PO DAILY [History] L.acidoph,Paracasei, B.lactis [Probiotic] 1 cap PO DAILY 01/06/18 [History] Ondansetron [Zofran ODT] 4 mg PO Q4H PRN 01/06/18 [History] Acetaminophen [Tylenol] 650 mg PO Q4H PRN #30 tablet 01/09/18 [Rx] Past Medical History HEENT History: Reports: Impaired Vision Cardiovascular History: Reports: High Cholesterol, Hypertension, [place] Respiratory History: Reports: Sleep Apnea Gastrointestinal History: Reports: Bowel Obstruction Other Gastrointestinal History: partial bowel obstruction Genitourinary History: Reports: None [employer] History: Reports: Other (See Below) Other OB/BYN History: hysterectomy Musculoskeletal History: Reports: Muscular Dystrophy Other Musculoskeletal History: myotonic muscular dystrophy Neurological History: Reports: None Psychiatric History: Reports: None Endocrine/Metabolic History: Reports: Vitamin D Deficiency Other Endocrine/Metabolic History: hypoglycemia Hematologic History: Reports: None Immunologic History: Reports: None Oncologic (Cancer) History: Reports: None Other Dermatologic History: sebaceous cyst - Infectious Disease History Infectious Disease History: Reports: None - Past Surgical History Head Surgeries/Procedures: Reports: None GI Surgical History: Reports: Lysis of Adhesions Female Surgical History: Reports: Hysterectomy, Other (See Below) Other Female Surgeries/Procedures: BREAST BIOPSY. BILATERAL SALPINGECTOMY, EXCISION OF UMBILICUS Other Musculoskeletal Surgeries/Procedures:: MUSCLE BIOPSY. BREAST BIOPSY. 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[employer]) H&P Review of Systems - Review of Systems: Review Of Systems: See Below General: Reports: No Symptoms HEENT: Reports: No Symptoms Pulmonary: Reports: No Symptoms Cardiovascular: Reports: No Symptoms Gastrointestinal: Reports: Abdominal Pain, Distension, Nausea, Vomiting Genitourinary: Reports: No Symptoms Musculoskeletal: Reports: No Symptoms Skin: Reports: No Symptoms Psychiatric: Reports: No Symptoms Neurological: Reports: No Symptoms Exam - Exam Exam: See Below - Vital Signs Vital Signs: Last Vital Signs Temp 36.7 C 03/29/18 05:29 Pulse 66 03/29/18 05:29 Resp 16 03/29/18 05:29 BP 110/59 L 03/29/18 05:29 Pulse Ox 93 L 03/29/18 05:29 Weight: 61.235 kg - Exam General: Alert, Oriented, Cooperative, Mild Distress (secondary to pain) HEENT: Mucosa Moist & [place], Posterior Pharynx Clear, Pupils Equal Neck: Supple, Trachea Midline. No: Lymphadenopathy, Thyromegaly Lungs: Clear to Auscultation, Normal Respiratory Effort Cardiovascular: Regular Rate, Regular Rhythm, Normal S1, Normal S2, Systolic Murmur GI/Abdominal Exam: Soft, No Organomegaly, No Mass, Distended, Tender (mild generalized tenderness without rebound, rigidity, or guarding), Abnormal Bowel Sounds (hypoactive) Extremities: Non-Tender, No Pedal Edema, Normal Capillary Refill Peripheral Pulses: 2+: Radial (L), Radial (R) Skin: Warm, Dry, Intact - Patient Data Lab Results Last 24 hrs: Laboratory Results - last 24 hr 03/29/18 03/29/18 03/29/18 Range/Units 01:23 01:23 01:23 WBC 10.3 H (4.0-10.0) x10^3/uL RBC 4.24 (4.00-5.50) x10^6/uL Hgb 12.9 D (12.0-16.0) g/dL Hct 40.4 (33.0-47.0) % MCV 95.3 H (78.0-93.0) fL MCH 30.4 (26.0-32.0) pg MCHC 31.9 L (32.0-36.0) g/dL RDW Coeff of Jose David 14.0 (10.0-15.0) % Plt Count 264 D (130-400) x10^3/uL Neut % (Auto) 84.6 H (50.0-80.0) % Lymph % (Auto) 9.6 L (25.0-50.0) % Mccormick % (Auto) 5.4 (2.0-11.0) % Eos % (Auto) 0.3 (0.0-4.0) % Baso % (Auto) 0.1 L (0.2-1.2) % PT 9.9 (9.6-11.4) SEC INR 0.9 L (2.0-3.5) Sodium 144 (136-145) mmol/L Potassium 3.7 (3.5-5.1) mmol/L Chloride 106 (98-107) mmol/L Carbon Dioxide 27 (21-32) mmol/L Anion Gap 14.7 (10-20) mmol/L BUN 22 H (7-18) mg/dL Creatinine 0.6 (0.55-1.02) mg/dL Est Cr Clr Drug Dosing 85.76 mL/min Estimated GFR (MDRD) > 60 Glucose 116 H (74-106) mg/dL Lactic Acid (0.4-2.0) mmol/L Calcium 9.7 (8.5-10.1) mg/dL Corrected Calcium 10.18 H (8.5-10.1) mg/dL Phosphorus 4.6 (2.6-4.7) mg/dL Magnesium 2.1 (1.8-2.4) mg/dL Total Bilirubin 0.5 (0.2-1.0) mg/dL AST 23 (15-37) U/L ALT 54 (14-59) U/L Alkaline Phosphatase 185 H (46-116) U/L C-Reactive Protein 2.8 H (<=0.9) mg/dL Total Protein 7.1 (6.4-8.2) g/dL Albumin 3.4 (3.4-5.0) g/dL Globulin 3.7 Albumin/Globulin Ratio 0.92 Urine Color (YELLOW) Urine Appearance (CLEAR) Urine pH (5.0-8.0) Ur Specific [place] Urine Protein (NEGATIVE) mg/dL Urine Glucose (UA) (NEGATIVE) mg/dL Urine Ketones (NEGATIVE) mg/dL Urine Occult Blood (NEGATIVE) Urine Nitrite (NEGATIVE) Urine Bilirubin (NEGATIVE) Urine Urobilinogen (0.2) EU/dL Ur Leukocyte Esterase (NEGATIVE) Urine RBC (NOT SEEN) /HPF Urine WBC (NOT SEEN) /HPF Ur Squamous Epith Cells (NEGATIVE) /HPF Urine Bacteria (NEGATIVE) /HPF Urine Mucus (NEGATIVE) /LPF 03/29/18 03/29/18 Range/Units 01:23 04:37 WBC (4.0-10.0) x10^3/uL RBC (4.00-5.50) x10^6/uL Hgb (12.0-16.0) g/dL Hct (33.0-47.0) % MCV (78.0-93.0) fL MCH (26.0-32.0) pg MCHC (32.0-36.0) g/dL RDW Coeff of Jose David (10.0-15.0) % Plt Count (130-400) x10^3/uL Neut % (Auto) (50.0-80.0) % Lymph % (Auto) (25.0-50.0) % Mccormick % (Auto) (2.0-11.0) % Eos % (Auto) (0.0-4.0) % Baso % (Auto) (0.2-1.2) % PT (9.6-11.4) SEC INR (2.0-3.5) Sodium (136-145) mmol/L Potassium (3.5-5.1) mmol/L Chloride (98-107) mmol/L Carbon Dioxide (21-32) mmol/L Anion Gap (10-20) mmol/L BUN (7-18) mg/dL Creatinine (0.55-1.02) mg/dL Est Cr Clr Drug Dosing mL/min Estimated GFR (MDRD) Glucose (74-106) mg/dL Lactic Acid 0.8 (0.4-2.0) mmol/L Calcium (8.5-10.1) mg/dL Corrected Calcium (8.5-10.1) mg/dL Phosphorus (2.6-4.7) mg/dL Magnesium (1.8-2.4) mg/dL Total Bilirubin (0.2-1.0) mg/dL AST (15-37) U/L ALT (14-59) U/L Alkaline Phosphatase (46-116) U/L C-Reactive Protein (<=0.9) mg/dL Total Protein (6.4-8.2) g/dL Albumin (3.4-5.0) g/dL Globulin Albumin/Globulin Ratio Urine Color Yellow (YELLOW) Urine Appearance Clear (CLEAR) Urine pH 5.0 (5.0-8.0) Ur Specific [place] 1.020 Urine Protein Negative (NEGATIVE) mg/dL Urine Glucose (UA) Negative (NEGATIVE) mg/dL Urine Ketones Negative (NEGATIVE) mg/dL Urine Occult Blood Negative (NEGATIVE) Urine Nitrite Negative (NEGATIVE) Urine Bilirubin Negative (NEGATIVE) Urine Urobilinogen 0.2 (0.2) EU/dL Ur Leukocyte Esterase Negative (NEGATIVE) Urine RBC 0-5 (NOT SEEN) /HPF Urine WBC 0-5 (NOT SEEN) /HPF Ur Squamous Epith Cells Few H (NEGATIVE) /HPF Urine Bacteria Few H (NEGATIVE) /HPF Urine Mucus Few H (NEGATIVE) /LPF Result Diagrams: 03/29/18 01:23 03/29/18 01:23 Edward Results Last 24 hrs: Microbiology 03/29/18 01:23 Anaerobic Blood Culture - Final Blood - Venous - Problem List (1) Bowel obstruction SNOMED Code(s): 61650853 ICD Code: K56.609 - UNSP INTESTNL OBST, UNSP TO PARTIAL VERSUS COMPLETE OBST Status: Acute Current Visit: Yes (2) Coronary artery disease SNOMED Code(s): 20014842 ICD Code: I25.10 - ATHSCL HEART DISEASE OF [place] CORONARY ARTERY W/O ANG PCTRS Status: Chronic Current Visit: Yes Qualifiers: Coronary Disease-Associated Artery/Lesion type: [place] artery [place] vs. transplanted heart: [place] heart Associated angina: without angina Qualified Code(s): I25.10 - Atherosclerotic heart disease of [place] coronary artery without angina pectoris (3) Myotonic dystrophy, type 1 SNOMED Code(s): 50826002 ICD Code: G71.11 - MYOTONIC MUSCULAR DYSTROPHY Status: Chronic Current Visit: No (4) Hot flashes SNOMED Code(s): 218216505 ICD Code: R23.2 - FLUSHING Status: Chronic Current Visit: Yes Problem List Initiated/Reviewed/Updated: Yes Orders Last 24hrs: Active Orders 24 hr Category Date Time Status Patient Status [ADT] Routine ADT 03/29/18 04:07 Active Intake and Output [RC] 08,20 Care 03/29/18 04:29 Active Oxygen Therapy [RC] PRN Care 03/29/18 08:08 Ordered Up With Assistance [RC] ASDIRECTED Care 03/29/18 04:29 Active VTE/DVT Education [RC] PER UNIT ROUTINE Care 03/29/18 04:29 Active Vital Signs [RC] 06,10,14,18,22,02 Care 03/29/18 04:29 Active Nothing per Oral Now Diet [DIET] Diet 01/18/19 Breakfast Active Abdomen Pelvis w Cont [CT] Stat Exams 03/29/18 02:11 Ordered BASIC METABOLIC PANEL,BMP [CHEM] Routine Lab 03/30/18 05:11 Ordered CBC WITH AUTO DIFF [HEME] Routine Lab 03/30/18 05:11 Ordered CULTURE BLOOD [BC] Stat Lab 03/29/18 01:23 Results CULTURE BLOOD [BC] Stat Lab 03/29/18 01:31 Received Aspirin [Halfprin] Med 03/30/18 08:00 Ordered 81 mg PO DAILY Enoxaparin [Lovenox] Med 03/30/18 08:00 Ordered 40 mg SUBCUT DAILY Lactated Ringers [Ringers, Lactated] 1,000 ml Med 03/29/18 04:45 Active IV ASDIRECTED Metoclopramide [Reglan] Med 03/29/18 09:00 Active 5 mg IVPUSH Q4H Morphine Med 03/29/18 04:25 Active 4 mg IVPUSH Q2H PRN Ondansetron [Zofran] Med 03/29/18 04:30 Active 4 mg IVPUSH Q8H Sodium Chloride 0.9% [Saline Flush] Med 03/29/18 00:56 Active 10 ml FLUSH ASDIRECTED PRN Blood Culture x2 Reflex Set [OM.PC] Stat Oth 03/29/18 01:04 Ordered Peripheral IV Insertion Adult [OM.PC] Routine Oth 03/29/18 00:56 Ordered Code Status [Resuscitation Status] Routine Resus Stat 03/29/18 04:28 Ordered Medication Orders Aspirin (Halfprin) 81 mg PO DAILY [facility] Enoxaparin Sodium (Lovenox) 40 mg SUBCUT DAILY [facility] Lactated Ringer's (Ringers, Lactated) 1,000 mls @ 125 mls/hr IV ASDIRECTED IRINA Last Admin: 03/29/18 05:16 Dose: 125 mls/hr Metoclopramide HCl (Reglan) 5 mg IVPUSH Q4H [facility] Last Admin: 03/29/18 08:00 Dose: 5 mg Morphine Sulfate (Morphine) 4 mg IVPUSH Q2H PRN PRN Reason: Abdominal Pain Last Admin: 03/29/18 08:01 Dose: 4 mg Ondansetron HCl (Zofran) 4 mg IVPUSH Q8H [facility] Last Admin: 03/29/18 04:56 Dose: 4 mg Sodium Chloride (Saline Flush) 10 ml FLUSH ASDIRECTED PRN PRN Reason: Keep Vein Open Last Admin: 03/29/18 01:12 Dose: 10 ml Assessment/Plan Comment:: #1 Small Bowel Obstruction - Pain control with morphine as ordered. - Reglan for nausea. - Patient does not feel she needs an NG tube, which is reasonable since she is not currently vomiting. Will reconsider if not improving over the next 24 hours. - NPO. - IV fluids. - Recheck labs in the am. #2 CAD - Asymptomatic. - Continue 81 mg ASA. #3 Myotonic Dystrophy, type 1 - She has not been taking her carbamazepine and flexeril as prescribed. - Therefore, will hold while hospitalized. #4 Hot Flashes - She is on her week of not taking the estradiol; therefore, this will be held as well. Patient is admitted to acute - anticipate she will be admitted for 48-72 hours. If not improving with conservative cares in that time period, transfer to [place] for surgical consult will need to be considered. Pain and nausea control. Bowel rest. Continue aspirin but hold all other home medications from her list as she has not been taking them. Lovenox for VTE prophylaxis. Code status is full - discussed on admission. Patient will be signed out to her PCP whom is also the weekend call provider for further cares.
--- NOTE | 2018-03-29 08:49 | CT ---
[id number] CT/CT Abdomen Pelvis W IV EXAM: CT Abdomen Pelvis W IV CLINICAL DATA: ABDOMINAL PAIN COMPARISON: CORRELATION IS MADE WITH THE EXAM OF JANUARY 06, 2018. FINDINGS: A small bowel obstruction is seen. The obstruction appears to involve the jejunum. Splenic hypodensities are stable. The liver and spleen otherwise show no abnormalities. The aorta, adrenals, kidneys, pancreas show no abnormalities. A moderate left renal cyst is identified. The gallbladder is not distended. The appendix appears normal. The pelvis shows no mass or adenopathy. The uterine and ovaries have been removed. IMPRESSION: RECURRENT SMALL BOWEL OBSTRUCTION. REPORT PROVIDED AT TIME OF EXAM. Valeriy Clark MD 03/29/18 0838 Thank you for allowing us to participate in the care of your patient.
--- NOTE | 2018-03-29 18:15 | PN ---
Progress Note for ZAKI POON Date: 03/29/2018 Room #: VM.205 SUBJECTIVE: This is a 52-year-old admitted this morning for a recurrent bowel obstruction. The patient has had this numerous times. She had symptoms for the last couple of days, no BM for 2 days, associated with some nausea and vomiting. She, otherwise, has not had any fever or chills. She is feeling a little bit better, but still not passing much for gas. She has been on scheduled Reglan throughout the day. She did get a dose of IV morphine last at 8 a.m. She rates her pain now at a 4. OBJECTIVE: VITAL SIGNS: Her temperature is 98.7, her pulse 58, blood pressure 88/42, respiratory rate 16, and O2 of 91 on room air. GENERAL: She is in no acute distress. HEART: Regular rate and rhythm. LUNGS: Lung sounds are clear to auscultation bilaterally without crackles or wheezes. ABDOMEN: Mildly distended. She does have no bowel sounds present. It is slightly hypoactive in the left lower quadrant. She has no significant tenderness. No rebound, no guarding noted. EXTREMITIES: Warm and dry without edema. ASSESSMENT: 1. Small bowel obstruction, recurrent. The patient already had a CT. She is not requiring an NG tube. We will continue n.p.o. and IV fluids for now. 2. History of coronary artery disease. We will continue aspirin. 3. Myotonic dystrophy. 4. History of hot flashes. She is currently off her estradiol. 5. Mild leukocytosis, but no source of infection noted. 6. Mildly elevated alkaline phosphatase. 7. Deep vein thrombosis prophylaxis, on Lovenox. 8. Lower blood pressure. She typically runs low. We will continue to monitor closely. Give her fluid boluses as needed. PLAN: At this point, the patient will continue acute cares with IV Reglan. We will try to minimize her need for morphine. We will get her up and walking around, hopefully that will help. We will get her on incentive spirometry. We will repeat lab work in the morning. MKA: 03/29/2018 17:31:42 MODL: 03/29/2018 18:07:55 /[id number]
[2018-03-30] MEDS: Metoclopramide 10 MG/2 ML SDV IVPUSH SCH ×6 (02:19→23:13)
[2018-03-30] MEDS: Ondansetron 4 MG/2 ML SDV IVPUSH SCH ×3 (04:49→21:05)
[2018-03-30 08:15] LABS: CHLORIDE,CL 109 mmol/L (98-107); SODIUM,NA 144 mmol/L (136-145)
[2018-03-30 08:19] LABS: ANION GAP 11.4 mmol/L (10-20)
[2018-03-30] MEDS: Aspirin 81 MG Tab.EC PO SCH (08:35)
[2018-03-30] MEDS ORDERED: NS + KCl 20mEq/L 1,000 ML IV SCH (09:45)
[2018-03-30] MEDS: Enoxaparin 40 MG/0.4 ML Syringe SUBCUT SCH (10:38)
--- NOTE | 2018-03-30 11:09 | PN ---
Progress Note for ZAKI POON Date: 03/30/2018 Room #: VM.205 SUBJECTIVE: This is hospital day #2 on a 52-year-old admitted with a small- bowel obstruction. The patient is symptomatically better. She has no pain. She has not received any morphine since yesterday morning. She has no nausea currently, but did have some during the night, getting Zofran at 4 a.m. She is feeling like she would like to try eating. She has been on IV Reglan. She is passing some gas. OBJECTIVE: Vital Signs: Her temperature is 98.5, pulse 63, blood pressure 106/50, respiratory rate 16, O2 of 97% on room air. General: She is in no acute distress. Heart: Regular rate and rhythm. S1, S2 without murmur. Lungs: Lung sounds are clear to auscultation bilaterally without crackles or wheezes. Abdomen: Still mildly distended, soft, nontender. Hypoactive bowel sounds other than just some faint sounds in the right lower quadrant. Extremities: Warm and dry. No edema. Mental Status: She is alert and orientated x3. LABORATORY DATA: Lab work does show her white count to have normalized at 4.8, hemoglobin 9.7, platelets 179. Sodium 144, potassium 3.4, chloride 109, bicarb 27, BUN 13, creatinine 0.5, glucose 63, calcium 8.6. ASSESSMENT AND PLAN: 1. Partial small-bowel obstruction, clinically improving. We will start a clear liquid diet and progress as able. 2. Hypokalemia. We will replace with IV fluids for 1 more bag of normal saline with 20 KCl. 3. History of coronary artery disease. She will continue aspirin. 4. Myotonic dystrophy. 5. History of hot flashes. She is off estradiol currently. 6. Mild anemia could be due to hemodilution. We will repeat a hemoglobin tomorrow. 7. Deep venous thrombosis prophylaxis. We will continue Lovenox. PLAN: At this point, the patient will continue acute cares. We will continue IV fluids. Replace potassium, IV Reglan. Advance diet, incentive spirometry, and encourage walking. MKA: 03/30/2018 10:54:10 MODL: 03/30/2018 11:05:25 /[id number]
[2018-03-30] MEDS ORDERED: Acetaminophen 500 MG Tab PO PRN (22:37)
[2018-03-31] MEDS: Metoclopramide 10 MG/2 ML SDV IVPUSH SCH ×3 (03:14→09:12)
[2018-03-31] MEDS: Ondansetron 4 MG/2 ML SDV IVPUSH SCH (05:06)
[2018-03-31 08:03] LABS: CHLORIDE,CL 113 mmol/L (98-107); SODIUM,NA 148 mmol/L (136-145)
[2018-03-31 08:04] LABS: ANION GAP 8.2 mmol/L (10-20)
[2018-03-31] MEDS: Aspirin 81 MG Tab.EC PO SCH (09:10)
[2018-03-31] MEDS: Enoxaparin 40 MG/0.4 ML Syringe SUBCUT SCH (09:12)
[2018-03-31] MEDS ORDERED: Potassium Chloride 20 MEQ Tab.ER PO SCH (09:18)
--- NOTE | 2018-03-31 10:03 | DISCH ---
PRIMARY DISCHARGE DIAGNOSES: 1. Partial small-bowel obstruction, with history of recurrent SBO, resolved. 2. Hypokalemia, replaced IV and orally. 3. Underlying myotonic dystrophy. The patient has been off her Tegretol due to weight gain. She will follow up with her neurologist later this spring. 4. History of coronary artery disease, stable. We will continue aspirin. 5. History of hot flashes. She is on estradiol but currently on her week off. 6. Mild anemia. 7. Mild hypoxia when lying down, but better when sitting up. She has faint crackles in both bases. No cough. No fever. Probably related to the fluid that we gave her. She is a positive over 1 L during her stay. But due to lower blood pressures at baseline I wouldn't advise any lasix and she agrees. REASON FOR ADMISSION: On the date of admission, this 52-year-old female came into the ER due to abdominal pain, nausea, vomiting. She has had multiple previous admissions for small bowel obstructions. She did have a CT, which showed her to have small-bowel obstruction, appears to be in the jejunum. Otherwise, she was not actively vomiting, so no NG was placed. She was kept n.p.o. She was given IV fluids. By the next hospital day, after 24 hours, she was feeling better, so therefore clear liquid diet was started. She did have 6 looser stools on that date. Diet was advanced to a soft diet which she was tolerating. She was still having a little bit of abdominal discomfort, but no nausea. She was getting scheduled Reglan. On the morning of discharge, the patient was overall feeling improved. She was up, she was walking in the halls. She had not used anything other than some Tylenol in the evening before for her headache for pain. Discussion was had to consider discharge and she was hopeful to do that today. DISCHARGE PHYSICAL EXAMINATION: VITAL SIGNS: Discharge vitals included temperature 97.1, pulse 52, blood pressure 99/47, which is routine for her to have lower blood pressures, respiratory rate 14, and O2 when she was up was 98% on room air. GENERAL: She was in no acute distress. HEENT: Regular rate and rhythm. S1, S2 without murmur. LUNGS: Lung sounds were slightly decreased with mild crackles in both bases. ABDOMEN: Has positive bowel sounds. It is mildly distended but soft, especially when she was lying in bed during her exam. There is just some mild mid epigastric tenderness. Bowel sounds are still hypoactive. EXTREMITIES: Warm and dry. No edema. MENTAL STATUS: Alert and orientated x3. She did receive Lovenox during her stay. DISCHARGE PLANS AND INSTRUCTIONS: She will follow up in the clinic with Dr. Powell on the at 8:30 with lab work prior to include potassium. Her discharging hemoglobin was up to 10.4, white count was normal. She never received any antibiotics during her stay. Magnesium was 2.1. Blood sugars were monitored as she had one down to 63. They were all better after that, that was fasting. She will be on Reglan oral 5 mg 3 times a day for the next day and taper that off, to be available if needed for nausea. She will also be on potassium 20 mEq twice daily for another 3 days, first dose 20 mEq given prior to discharge. She should not take any Imodium at home for loose stools and again discharging potassium was 3.2. MKA: 03/31/2018 09:35:56 MODL: 03/31/2018 09:55:44 /[id number]
[2018-03-31] MEDS ORDERED: Metoclopramide 5 MG Tab PO SCH (11:00)
[2018-03-31 11:02] VITALS: BP 128/71
== END 2018-03-31 10:10 | disposition home or self-care (01) | DRG 247 ==
LOC: VM.ED 00:32 → VM.MS 04:10
PROVIDERS: ADMIT Family Medicine; ATTEND Internal Medicine
DX: K56.600 Partial intestinal obstruction, unspecified as to cause (principal); E87.6 Hypokalemia; I25.10 Atherosclerotic heart disease of native coronary artery without angina pectoris; G71.11 Myotonic muscular dystrophy; N95.1 Menopausal and female climacteric states; I10 Essential (primary) hypertension; R09.02 Hypoxemia; H54.7 Unspecified visual loss; G47.30 Sleep apnea, unspecified; E55.9 Vitamin D deficiency, unspecified; E16.2 Hypoglycemia, unspecified; D72.829 Elevated white blood cell count, unspecified; D64.9 Anemia, unspecified; R03.1 Nonspecific low blood-pressure reading; Z79.899 Other long term (current) drug therapy; I25.2 Old myocardial infarction; Z79.82 Long term (current) use of aspirin; Z88.8 Allergy status to other drugs, medicaments and biological substances; Z90.710 Acquired absence of both cervix and uterus
CPT/HCPCS: 36415; 74177; 80048; 80053; 81001; 82962; 83605; 83735; 84100; 85025; 85610; 86140; 87040; 96361; 96374; 96375; 99285; A9270-GY; J1170; J1650; J2270; J2405; J2765; J3480; J7030; J7120; Q9967

== ENCOUNTER 2018-08-17 12:33 | Inpatient (IN) | payer BC ==
[2018-08-17] MEDS ORDERED: Morphine 4 MG/ML Syringe IVPUSH ONE (12:38)
[2018-08-17] MEDS ORDERED: Ondansetron 4 MG/2 ML SDV IVPUSH ONE (12:38)
[2018-08-17] MEDS ORDERED: Sodium Chloride 0.9% 1,000 ML IV ONE (12:39)
[2018-08-17] MEDS ORDERED: Metoclopramide 10 MG/2 ML SDV IVPUSH ONE (12:44)
--- NOTE | 2018-08-17 12:59 | EDM.PDOC ---
ED HPI GENERAL MEDICAL PROBLEM - General Chief Complaint: Abdominal Pain Stated Complaint: ER VISIT Time Seen by Provider: 08/17/18 12:33 Source of Information: Reports: Patient History Limitations: Reports: No Limitations - History of Present Illness INITIAL COMMENTS - FREE TEXT/NARRATIVE: Pt. presents to ER with increased abdominal pain. Pt. was seen in clinic for the same yesterday and was diagnosed with an SBO. Pt. has a longstanding history of small bowel obstruction in the past. She denies any fever or chills. No chest pain or shortness of breath. She states that she has vomited once today (bilious) and states that her last BM was yesterday. She states that she is passing gas. She denies any dysuria. She last had a bowel movement in March and was hospitalized for this. The obstruction resolved spontaneously with IV reglan, fluids and NPO status. She states that they usually resolve without NG placement. Onset Date: 08/16/18 Location: Reports: Abdomen Quality: Reports: Ache, Sharp Severity: Moderate Associated Symptoms: Reports: Nausea/Vomiting. Denies: Diaphoresis, Fever/ Chills, Shortness of Breath, Syncope Abdomen Pain Score (Numeric/FACES): 10 Upper Abdominal Pain Score (Numeric/FACES): 8 - Related Data Allergies Allergy/AdvReac Type Severity Reaction Status Date / Time hydromorphone [From Dilaudid] AdvReac Nausea Verified 08/17/18 13:19 tramadol HCl [From Ultram] AdvReac Vomiting Verified 08/17/18 13:19 Home Meds: Home Meds Cyclobenzaprine [Flexeril] 5 mg PO TID PRN 03/20/15 [History] Aspirin [Halfprin] 81 mg PO DAILY@03/17/16 [History] Estradiol 1 mg PO DAILY@11/20/17 [History] Ibuprofen/Diphenhydramine Cit [Advil Pm Caplet] 1 tab PO BEDTIME PRN 11/20/17 [ History] L.acidoph,Paracasei, B.lactis [Probiotic] 1 cap PO DAILY@01/06/18 [History] Ondansetron [Zofran ODT] 4 mg PO Q4H PRN 01/06/18 [History] Ascorbic Acid [Vitamin C] 1,000 mg PO DAILY@08/17/18 [History] Metoclopramide HCl [Reglan] 10 mg PO TIDMEALS 08/17/18 [History] Modafinil [Provigil] 100 mg PO DAILY@08/17/18 [History] Nitroglycerin [Nitrostat] 0.4 mg SL ASDIRECTED PRN 08/17/18 [History] carBAMazepine [Tegretol XR] 200 mg PO DAILY@08/17/18 [History] Past Medical History HEENT History: Reports: Impaired Vision Cardiovascular History: Reports: High Cholesterol, Hypertension, PA Respiratory History: Reports: Sleep Apnea Gastrointestinal History: Reports: Bowel Obstruction Other Gastrointestinal History: partial bowel obstruction Genitourinary History: Reports: None ORTHOPEDIC SHOE FITTER History: Reports: Other (See Below) Other ORTHOPEDIC SHOE FITTER History: hysterectomy Musculoskeletal History: Reports: Muscular 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 hypophosphatemia. hypokalemia,. vitamin d deficiency Immunologic History: Reports: None Oncologic (Cancer) History: Reports: None Other Dermatologic History: sebaceous cyst - Infectious Disease History Infectious Disease History: Reports: None - Past Surgical History Head Surgeries/Procedures: Reports: None GI Surgical History: Reports: Lysis of Adhesions Female Surgical History: Reports: Hysterectomy, Other (See Below) Other Female Surgeries/Procedures: BREAST BIOPSY. BILATERAL SALPINGECTOMY, EXCISION OF UMBILICUS Other Musculoskeletal Surgeries/Procedures:: MUSCLE BIOPSY. BREAST BIOPSY. 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) ED ROS GENERAL - Review of Systems Review Of Systems: See Below Constitutional: Reports: No Symptoms HEENT: Reports: No Symptoms Respiratory: Reports: No Symptoms Cardiovascular: Reports: No Symptoms Endocrine: Reports: No Symptoms GI/Abdominal: Reports: Abdominal Pain, Decreased Appetite, Flatus. Denies: Black Stool, Bloody Stool, Constipation, Diarrhea, Hematemesis : Denies: No Symptoms Musculoskeletal: Reports: No Symptoms Skin: Reports: No Symptoms Neurological: Reports: No Symptoms Psychiatric: Reports: No Symptoms ED EXAM, GENERAL - Physical Exam Exam: See Below Exam Limited By: No Limitations General Appearance: Alert, WD/WN, No Apparent Distress Eye Exam: Bilateral Eye: EOMI, PERRL Head: Atraumatic, Normocephalic Neck: Normal Inspection, Supple, Non-Tender Respiratory/Chest: No Respiratory Distress, Lungs Clear, Normal Breath Sounds, No Accessory Muscle Use, Chest Non-Tender Cardiovascular: Normal Peripheral Pulses, Regular Rate, Rhythm, No Edema, No Gallop, No JVD, No Murmur, No Rub Peripheral Pulses: 4+: Brachial (R) GI/Abdominal: No Organomegaly, Distended, Tender (Female) Exam: Deferred Rectal (Female) Exam: Deferred Back Exam: Normal Inspection, Full Range of Motion Extremities: Normal Inspection, Normal Range of Motion, Non-Tender, No Pedal Edema, Normal Capillary Refill Neurological: Alert, Oriented, CN II-XII Intact, Normal Cognition, Normal Gait, Normal Reflexes, No Motor/Sensory Deficits Psychiatric: Normal Affect, Normal Mood Skin Exam: Warm, Dry, Intact, Normal Color, No Rash Lymphatic: No Adenopathy Course - Vital Signs Last Recorded V/S: Last Vital Signs Temp 37.2 C 08/19/18 05:40 Pulse 62 08/19/18 05:40 Resp 16 08/19/18 05:40 BP 106/60 08/19/18 05:40 Pulse Ox 98 08/19/18 05:40 - Orders/Labs/Meds Orders: Medication Orders Carbamazepine (Tegretol Xr) 200 mg PO DAILY@17 [facility] Last Admin: 08/18/18 16:26 Dose: 200 mg Admin: 08/17/18 16:50 Dose: 200 mg Cyclobenzaprine HCl (Flexeril) 5 mg PO TID PRN PRN Reason: muscle spasm or pain Last Admin: 08/17/18 16:50 Dose: 5 mg Enoxaparin Sodium (Lovenox) 40 mg SUBCUT DAILY [facility] Last Admin: 08/19/18 08:47 Dose: 40 mg Admin: 08/18/18 07:39 Dose: 40 mg Ketorolac Tromethamine (Toradol) 30 mg IVPUSH Q6H PRN PRN Reason: Pain Stop: 08/22/18 16:17 Metoclopramide HCl (Reglan) 10 mg IVPUSH TID [facility] Last Admin: 08/19/18 08:47 Dose: 10 mg Admin: 08/18/18 20:02 Dose: 10 mg Admin: 08/18/18 11:31 Dose: 10 mg Admin: 08/18/18 07:39 Dose: 10 mg Admin: 08/17/18 19:41 Dose: 10 mg Morphine Sulfate (Morphine) 2 mg IVPUSH Q2H PRN PRN Reason: Pain (severe 7-10) Last Admin: 08/18/18 03:36 Dose: 2 mg Admin: 08/17/18 19:43 Dose: 2 mg Nitroglycerin (Nitrostat) 0.4 mg SL ASDIRECTED PRN PRN Reason: Chest Pain Ondansetron HCl (Zofran Odt) 4 mg PO Q4H PRN PRN Reason: Nausea/Vomiting Pantoprazole Sodium (Protonix Iv) 40 mg IVPUSH Q12H [facility] Last Admin: 08/19/18 03:36 Dose: 40 mg Admin: 08/18/18 15:20 Dose: 40 mg Admin: 08/18/18 03:32 Dose: 40 mg Admin: 08/17/18 16:50 Dose: 40 mg Sodium Chloride (Saline Flush) 10 ml FLUSH ASDIRECTED PRN PRN Reason: Keep Vein Open Last Admin: 08/17/18 16:18 Dose: 10 ml Labs: Laboratory Tests 08/17/18 08/17/18 08/17/18 Range/Units 12:50 12:50 12:50 WBC 5.7 (4.0-10.0) x10^3/uL RBC 4.48 (4.00-5.50) x10^6/uL Hgb 13.6 D (12.0-16.0) g/dL Hct 42.5 (33.0-47.0) % MCV 94.9 H (78.0-93.0) fL MCH 30.4 (26.0-32.0) pg MCHC 32.0 (32.0-36.0) g/dL RDW Coeff of Jose David 13.7 (10.0-15.0) % Plt Count 288 D (130-400) x10^3/uL Neut % (Auto) 76.2 (50.0-80.0) % Lymph % (Auto) 10.5 L (25.0-50.0) % [place] % (Auto) 12.2 H (2.0-11.0) % Eos % (Auto) 0.9 (0.0-4.0) % Baso % (Auto) 0.2 (0.2-1.2) % PT 10.1 (10.0-12.8) SEC INR 0.9 L (2.0-3.5) Sodium 143 (136-145) mmol/L Potassium 4.0 (3.5-5.1) mmol/L Chloride 103 (98-107) mmol/L Carbon Dioxide 30 (21-32) mmol/L Anion Gap 14.0 (10-20) mmol/L BUN 10 (7-18) mg/dL Creatinine 0.5 L (0.55-1.02) mg/dL Est Cr Clr Drug Dosing TNP Estimated GFR (MDRD) > 60 Glucose 107 H (74-106) mg/dL Calcium 9.4 (8.5-10.1) mg/dL Corrected Calcium 10.04 (8.5-10.1) mg/dL Phosphorus 3.3 (2.6-4.7) mg/dL Magnesium 2.0 (1.8-2.4) mg/dL Total Bilirubin 0.6 (0.2-1.0) mg/dL AST 13 L (15-37) U/L ALT 28 (14-59) U/L Alkaline Phosphatase 157 H (46-116) U/L C-Reactive Protein 15.2 H (<=0.9) mg/dL Total Protein 7.3 (6.4-8.2) g/dL Albumin 3.2 L (3.4-5.0) g/dL Globulin 4.1 Albumin/Globulin Ratio 0.78 Urine Color (YELLOW) Urine Appearance (CLEAR) Urine pH (5.0-8.0) Ur Specific [place] Urine Protein (NEGATIVE) mg/dL Urine Glucose (UA) (NEGATIVE) mg/dL Urine Ketones (NEGATIVE) mg/dL Urine Occult Blood (NEGATIVE) Urine Nitrite (NEGATIVE) Urine Bilirubin (NEGATIVE) Urine Urobilinogen (0.2) EU/dL Ur Leukocyte Esterase (NEGATIVE) Urine RBC (NOT SEEN) /HPF Urine WBC (NOT SEEN) /HPF Ur Squamous Epith Cells (NEGATIVE) /HPF Urine Mucus (NEGATIVE) /LPF 08/17/18 Range/Units 13:10 WBC (4.0-10.0) x10^3/uL RBC (4.00-5.50) x10^6/uL Hgb (12.0-16.0) g/dL Hct (33.0-47.0) % MCV (78.0-93.0) fL MCH (26.0-32.0) pg MCHC (32.0-36.0) g/dL RDW Coeff of Jose David (10.0-15.0) % Plt Count (130-400) x10^3/uL Neut % (Auto) (50.0-80.0) % Lymph % (Auto) (25.0-50.0) % [place] % (Auto) (2.0-11.0) % Eos % (Auto) (0.0-4.0) % Baso % (Auto) (0.2-1.2) % PT (10.0-12.8) SEC INR (2.0-3.5) Sodium (136-145) mmol/L Potassium (3.5-5.1) mmol/L Chloride (98-107) mmol/L Carbon Dioxide (21-32) mmol/L Anion Gap (10-20) mmol/L BUN (7-18) mg/dL Creatinine (0.55-1.02) mg/dL Est Cr Clr Drug Dosing Estimated GFR (MDRD) Glucose (74-106) mg/dL Calcium (8.5-10.1) mg/dL Corrected Calcium (8.5-10.1) mg/dL Phosphorus (2.6-4.7) mg/dL Magnesium (1.8-2.4) mg/dL Total Bilirubin (0.2-1.0) mg/dL AST (15-37) U/L ALT (14-59) U/L Alkaline Phosphatase (46-116) U/L C-Reactive Protein (<=0.9) mg/dL Total Protein (6.4-8.2) g/dL Albumin (3.4-5.0) g/dL Globulin Albumin/Globulin Ratio Urine Color Yellow (YELLOW) Urine Appearance Slightly cloudy H (CLEAR) Urine pH 5.0 (5.0-8.0) Ur Specific [place] >=1.030 Urine Protein Trace H (NEGATIVE) mg/dL Urine Glucose (UA) Negative (NEGATIVE) mg/dL Urine Ketones 15 H (NEGATIVE) mg/dL Urine Occult Blood Negative (NEGATIVE) Urine Nitrite Negative (NEGATIVE) Urine Bilirubin Moderate H (NEGATIVE) Urine Urobilinogen 0.2 (0.2) EU/dL Ur Leukocyte Esterase Negative (NEGATIVE) Urine RBC 0-5 (NOT SEEN) /HPF Urine WBC 0-5 (NOT SEEN) /HPF Ur Squamous Epith Cells Moderate H (NEGATIVE) /HPF Urine Mucus Moderate H (NEGATIVE) /LPF Meds: Medications Generic Name Dose Route Start Last Admin Trade Name Freq PRN Reason Stop Dose Admin Carbamazepine 200 mg 08/17/18 17:00 08/18/18 16:26 Tegretol Xr PO 200 mg DAILY@17 IRINA Administration Cyclobenzaprine HCl 5 mg 08/17/18 15:59 08/17/18 16:50 Flexeril PO 5 mg TID PRN Administration muscle spasm or pain Enoxaparin Sodium 40 mg 08/18/18 08:00 08/19/18 08:47 Lovenox SUBCUT 40 mg DAILY IRINA Administration Ketorolac Tromethamine 30 mg 08/17/18 16:17 Toradol IVPUSH 08/22/18 16:17 Q6H PRN Pain Metoclopramide HCl 10 mg 08/17/18 20:00 08/19/18 08:47 Reglan IVPUSH 10 mg TID IRINA Administration Morphine Sulfate 2 mg 08/17/18 16:02 08/18/18 03:36 Morphine IVPUSH 2 mg Q2H PRN Administration Pain (severe 7-10) Nitroglycerin 0.4 mg 08/17/18 16:00 Nitrostat SL ASDIRECTED PRN Chest Pain Ondansetron HCl 4 mg 08/17/18 15:59 Zofran Odt PO Q4H PRN Nausea/Vomiting Pantoprazole Sodium 40 mg 08/17/18 16:00 08/19/18 03:36 Protonix Iv IVPUSH 40 mg Q12H IRINA Administration Sodium Chloride 10 ml 08/17/18 12:35 08/17/18 16:18 Saline Flush FLUSH 10 ml ASDIRECTED PRN Administration Keep Vein Open Discontinued Medications Generic Name Dose Route Start Last Admin Trade Name Silvio PRN Reason Stop Dose Admin Sodium Chloride 1,000 mls @ 1,000 mls/hr 08/17/18 12:39 08/17/18 13:01 Normal Saline IV 08/17/18 13:38 1,000 mls/hr .BOLUS ONE Administration Sodium Chloride 1,000 mls @ 125 mls/hr 08/17/18 16:15 08/19/18 00:52 Normal Saline IV 125 mls/hr ASDIRECTED IRINA Administration Iopamidol 100 ml 08/17/18 13:54 08/17/18 14:10 Isovue-300 (61%) IVPUSH 08/17/18 13:55 100 ml ONETIME ONE Administration Metoclopramide HCl 10 mg 08/17/18 12:44 08/17/18 13:01 Reglan IVPUSH 08/17/18 12:45 10 mg ONETIME ONE Administration Morphine Sulfate 4 mg 08/17/18 12:38 08/17/18 12:58 Morphine IVPUSH 08/17/18 12:39 4 mg ONETIME ONE Administration Ondansetron HCl 4 mg 08/17/18 12:38 08/17/18 15:16 Zofran IVPUSH 08/17/18 12:39 Not Given ONETIME ONE - Radiology Interpretation Free Text/Narrative:: Abd. CT shows mid to distal SBO with Departure - Departure Time of Disposition: 14:40 Disposition: Admitted As Inpatient 65 Clinical Impression: Small bowel obstruction - Discharge Information
[2018-08-17 13:18] LABS: CHLORIDE,CL 103 mmol/L (98-107); SODIUM,NA 143 mmol/L (136-145)
[2018-08-17] MEDS ORDERED: Iopamidol 612 MG/ML 100 ML Bottle IVPUSH ONE (13:54)
--- NOTE | 2018-08-17 14:57 | CT ---
[id number] CT/CT Abdomen Pelvis W IV EXAM: ABDOMEN AND PELVIS CT WITH CONTRAST INDICATION: Small bowel obstruction. COMPARISON: March 29, 2018. DISCUSSION: The small bowel is dilated to about 4.3 cm with a transition point in the mid to distal small bowel right upper pelvis consistent with the clinical history of small bowel obstruction. The obstructed small bowel loops demonstrate mild mesenteric edema and wall thickening. No pneumatosis or free air. Small volume free fluid. Hysterectomy. The left kidney contains a couple of cysts measuring up to about 4 cm which are similar to the prior study. Multiple small hypodensities scattered throughout the spleen are too small to further characterize, but of doubtful clinical significance. Focal fatty infiltration of the liver along the falciform ligament. This excavatum. Mild scarring or atelectasis in the imaged lung bases. Unchanged 2.2 cm subcutaneous cyst in the posterior lower chest. The pancreas, adrenal glands, right kidney, appendix and large bowel are normal in appearance. The osseous structures are unremarkable. IMPRESSION: 1. Mid to distal small bowel obstruction. The involved bowel loops demonstrate mild wall thickening and there is minor mesenteric edema and small volume free fluid. Red Castillo MD 08/17/18 [id number] Thank you for allowing us to participate in the care of your patient.
[2018-08-17] MEDS ORDERED: Ondansetron 4 MG Tab.DIS PO PRN (15:59)
[2018-08-17] MEDS ORDERED: Cyclobenzaprine 10 MG Tab PO PRN (15:59)
[2018-08-17] MEDS ORDERED: Nitroglycerin 0.4 MG Tab.SL SL PRN (16:00)
[2018-08-17] MEDS ORDERED: Ketorolac 30 MG/ML SDV IVPUSH PRN (16:17)
[2018-08-17] MEDS: Sodium Chloride 0.9% 10 ML Syringe FLUSH PRN (16:18)
[2018-08-17] MEDS: Sodium Chloride 0.9% 1,000 ML IV SCH (16:48)
[2018-08-17] MEDS: carBAMazepine 100 MG Cap.ER PO SCH (16:50)
[2018-08-17] MEDS: Pantoprazole 40 MG Vial IVPUSH SCH (16:50)
--- NOTE | 2018-08-17 17:05 | HP ---
CHIEF COMPLAINT: Abdominal pain and vomiting. HISTORY OF PRESENT ILLNESS: This is a 53-year-old female with known history of partial bowel obstructions, but no surgery for over a year, but previous hysterectomy who presents to the ER feeling worse since eating lunch on . She was in the clinic yesterday, had some x-rays showing partial bowel obstruction, but she wanted to try it at home. She had some broth during the night, but could not tolerate it. She has been throwing up quite frequently last 1 hour before she came in. She has not had any blood in her vomit. No black stools. The last bowel movement was yesterday, but she is not passing gas. She was quite uncomfortable, but she states she is feeling much better now after some IV Reglan and morphine. On previous admissions, she has not required any IV or NG tube. ALLERGIES: Include hydromorphone and tramadol. MEDICATIONS: Her medication list is reviewed and is Tegretol 200 daily, vitamin C, aspirin 81 mg daily, estradiol 1 mg daily, Advil as needed, Probiotic, Reglan 10 mg t.i.d. with meals, Provigil 100 mg daily, Flexeril 5 mg t.i.d. p.r.n., nitroglycerin as needed for chest pain, and Zofran. PAST MEDICAL HISTORY: Does include underlying myotonic dystrophy, history of coronary artery disease, hot flashes. PAST SURGICAL HISTORY: Surgically, she has previously had surgery for small bowel obstruction. She has had a hysterectomy. She has had a muscle biopsy, breast biopsy, small bowel obstruction surgery was for lysis of adhesions. SOCIAL HISTORY: She is . 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 She does not smoke or drink alcohol. FAMILY HISTORY: She does have other family members who have the myotonic dystrophy. REVIEW OF SYSTEMS: General: No fever. No chills. HEENT: No sore throat or trouble swallowing. Cardiac: No chest pain. No palpitations. Respiratory: No cough. No shortness of breath. Gastrointestinal: As stated in HPI. Genitourinary: No burning with urination. Musculoskeletal: She has some foot pain for which she has taken some Motrin. She is going to be having some surgery later this month. Otherwise, all systems reviewed and found to be negative. PHYSICAL EXAMINATION: Vital Signs: Weight 59.5 kg, temperature 99.6, pulse 73, blood pressure 88/43, respiratory rate 14, O2 of 90% on room air. General: She is in no acute distress. Heart: Regular rate and rhythm. No murmur is appreciated. Abdomen: Positive bowel sounds. It is mildly distended and tender, especially in the mid upper quadrants. Lungs: Lung sounds are clear to auscultation bilaterally with no crackles or wheezes. Extremities: Warm and dry. No edema. They are pale. Mental Status: She is alert. She is orientated x3. She is answering questions appropriately. LABORATORY DATA: Lab work does show her to have a normal white count 5.7, hemoglobin 13.6, platelets 288. INR 0.9. Sodium 143, potassium 4, chloride 103, bicarb 30, BUN 10, creatinine 0.5, glucose 107, calcium 10.04, AST 13, ALT 28, alkaline phosphatase 157. CRP 15.2, albumin 3.2. Urine, 0-5 wbc's and rbc's. She also had a CT scan in the emergency room which showed her to have mid to distal small bowel obstruction with bowel loops demonstrating mild wall thickening and minor mesenteric edema and small volume of free fluid. The small bowel was dilated to about 4.3 cm with a transition point in the mid to distal small bowel, right upper pelvis. ASSESSMENT AND PLAN: 1. Small bowel obstruction. This has been a recurrent problem for the patient. It has resolved multiple times with conservative measures. She seems to be improved now in terms of pain. Therefore, we will continue with n.p.o. status, just IV fluids. We will repeat lab work in the morning. We will have her on IV Reglan 10 mg IV t.i.d. We will replace electrolytes as needed. Potassium though is currently 4 and her magnesium was normal at 2. 2. Myotonic dystrophy. We will continue the Tegretol with small intake of ice chips. 3. History of coronary artery disease, stable. We will hold her aspirin for now given her upper abdominal discomfort and recent NSAID use, although I do not think she is having a gastrointestinal bleed. She had lab work through the clinic yesterday and her hemoglobin was stable, but I will give her some IV Protonix, just push. 4. History of hot flashes. We will hold her estrogen. 5. Mild hypoxia. We will get a chest x-ray. We will encourage incentive spirometry. 6. For deep venous thrombosis prophylaxis, she is on Lovenox. The plan was just discussed with the patient. We will try conservative measures. She is not actively vomiting, so we will not do an NG tube at this point. MKA: 08/17/2018 16:31:52 MODL: 08/17/2018 16:54:39 /[id number]
[2018-08-17] MEDS: Metoclopramide 10 MG/2 ML SDV IVPUSH SCH (19:41)
[2018-08-17] MEDS: Morphine 2 MG/ML Syringe IVPUSH PRN (19:43)
--- NOTE | 2018-08-17 20:54 | CR ---
[id number] RAD/RAD Chest PA And Lateral EXAM: FRONTAL AND LATERAL CHEST INDICATION: Shortness of breath. COMPARISON: March 21, 2015. DISCUSSION: There are linear opacities in the lung bases likely representing scarring or fibrosis. Overall these are stable or mildly improved relative to March 21, 2015. CT may be useful to evaluate for underlying interstitial lung disease. Mid and lower thoracic vertebral body anomalies are suggested. Borderline heart size. IMPRESSION: 1. Chronic linear opacities in the lung bases most likely representing scarring or fibrosis. Red Castillo MD 08/17/18 [id number] Thank you for allowing us to participate in the care of your patient.
[2018-08-18] MEDS: Sodium Chloride 0.9% 1,000 ML IV SCH ×3 (00:48→17:27)
[2018-08-18] MEDS: Pantoprazole 40 MG Vial IVPUSH SCH ×2 (03:32→15:20)
[2018-08-18] MEDS: Morphine 2 MG/ML Syringe IVPUSH PRN (03:36)
[2018-08-18] MEDS: Enoxaparin 40 MG/0.4 ML Syringe SUBCUT SCH (07:39)
[2018-08-18] MEDS: Metoclopramide 10 MG/2 ML SDV IVPUSH SCH ×3 (07:39→20:02)
--- NOTE | 2018-08-18 11:11 | PN ---
Progress Note for ZAKI POON Date: 08/18/2018 Room #: VM.204 SUBJECTIVE: Hospital day #2 for a 53-year-old admitted with recurrent small bowel obstruction. She has been having a little bit more upper abdominal pain since yesterday. Actually has more distention. She is still a little nauseated, but has not vomited. She did require 2 doses of IV morphine during the night. She is just passing a little bit of gas. States her pain is worse when she gets up and moves around. Breathing has been good. No cough. Did have an x-ray which did not show any infiltrates. PHYSICAL EXAMINATION: Vital Signs: Objectively, her temperature is 98.3, pulse 68, blood pressure 96/58, respiratory rate 16, O2 of 94% on room air. General: She is in no acute distress. Heart: Regular rate and rhythm. Lungs: Lung sounds are clear to auscultation bilaterally without crackles or wheezes. Abdomen: Distended. She has positive hyperactive bowel sounds in the upper quadrants. Did still have bowel sounds in the lower quadrants, but they were less reactive. She did have tenderness also to palpation, but no rebound or guarding. Extremities: Warm and dry. No edema. Mental Status: She is alert and orientated. ASSESSMENT AND PLAN: 1. Recurrent small bowel obstruction. The patient is not having any active vomiting. We will hold off on an NG tube. We will continue IV fluids. Keep her n.p.o. for now. If she feels better this evening, may try some liquids, but for now we will do the IV Reglan. We will repeat electrolytes and lab work tomorrow. 2. Myotonic dystrophy, stable. 3. History of coronary artery disease, stable. 4. Previous hot flashes. Estrogen is on hold. 5. Sleep apnea. She is using her CPAP. 6. Deep venous thrombosis prophylaxis. She is on Lovenox. PLAN: The patient will continue acute cares with n.p.o. status and IV fluids. If her condition worsens or fails to improve, we will get an x-ray. If she becomes severe, we may need to transfer her out to surgical care. MKA: 08/18/2018 10:36:17 MODL: 08/18/2018 11:05:27 /[id number] DANN
[2018-08-18] MEDS: carBAMazepine 100 MG Cap.ER PO SCH (16:26)
[2018-08-19] MEDS: Sodium Chloride 0.9% 1,000 ML IV SCH (00:52)
[2018-08-19] MEDS: Pantoprazole 40 MG Vial IVPUSH SCH ×2 (03:36→21:16)
[2018-08-19 07:46] LABS: CHLORIDE,CL 111 mmol/L (98-107); SODIUM,NA 144 mmol/L (136-145)
[2018-08-19] MEDS: Metoclopramide 10 MG/2 ML SDV IVPUSH SCH ×3 (08:47→21:16)
[2018-08-19] MEDS: Enoxaparin 40 MG/0.4 ML Syringe SUBCUT SCH (08:47)
[2018-08-19] MEDS: carBAMazepine 100 MG Cap.ER PO SCH (17:19)
--- NOTE | 2018-08-19 18:41 | PN ---
Progress Note for ZAKI POON Date: 08/19/2018 Room #: VM.204 SUBJECTIVE: Hospital day #3 on a 53-year-old admitted with a recurrent small- bowel obstruction. The patient did not require any pain medications in the last 24 hours. She states the pain is still there. She just has been able to tolerate it except when she sort of rolls over on the right side. She is no longer having nausea. She is wanting to try some clear liquids. Blood sugar was little bit low this morning, but she has been on only normal saline. Otherwise, she has not had any cough. No trouble breathing. PHYSICAL EXAMINATION: Vital Signs: Objectively, her temperature is 98.9, pulse 62, blood pressure 106/60, respiratory rate 16, O2 of 98% on room air. General: She is in no acute distress. Heart: Regular rate and rhythm. S1, S2 without murmur. Lungs: Lung sounds are clear to auscultation bilaterally without crackles or wheezes. Abdomen: Distended, especially in the upper abdomen. She has normoactive bowel sounds in upper abdomen otherwise. Extremities: Warm and dry. No edema. Mental Status: She is alert, she is orientated x3. LABORATORY DATA: Lab work was repeated this morning, did show her white count normal at 4.6, hemoglobin 10.4, platelets 231. Sodium 144, potassium 4, chloride 111, bicarb 20, BUN 6, creatinine 0.4, glucose 52, calcium 8, AST 13, alkaline phosphatase down to 134, albumin 2.6. ASSESSMENT: 1. Recurrent small-bowel obstruction. The patient has not had any vomiting. We are going to put her on a clear liquid diet today, stop IV fluids and see how she does. 2. Hypoglycemia due to not eating. We will do q.i.d. Accu-Cheks. 3. Myotonic dystrophy, stable. 4. History of coronary artery disease, stable. 5. Previous hot flashes, estrogen on hold. 6. Sleep apnea. She is using CPAP. 7. DVT prophylaxis. She is on Lovenox. 8. Anemia due to hemodilution. We will repeat lab work tomorrow. PLAN: At this point, we will do clear liquids. We will see how she tolerates that. Consider advancing diet tomorrow. If she gets worse, we will repeat x-rays. The patient is agreeable with the plan. MKA: 08/19/2018 17:11:39 MODL: 08/19/2018 18:33:51 /[id number]
[2018-08-19] MEDS: Sodium Chloride 0.9% 10 ML Syringe FLUSH PRN (21:17)
[2018-08-20 07:41] LABS: ANION GAP 12.4 mmol/L (10-20); CHLORIDE,CL 108 mmol/L (98-107); SODIUM,NA 144 mmol/L (136-145)
[2018-08-20] MEDS: Enoxaparin 40 MG/0.4 ML Syringe SUBCUT SCH (07:48)
[2018-08-20] MEDS: Metoclopramide 10 MG/2 ML SDV IVPUSH SCH ×2 (07:48→11:32)
[2018-08-20] MEDS: Pantoprazole 40 MG Vial IVPUSH SCH (07:48)
--- NOTE | 2018-08-20 13:18 | PN ---
Progress Note for ZAKI POON Date: 08/20/2018 Room #: .204 SUBJECTIVE: This is hospital day #4 on a 53-year-old admitted with a recurrent small-bowel obstruction. She has been on a clear liquid diet, but she inadvertently got some oatmeal this morning. She ate it. She tolerated it. She reports that the pain is still there, but she has not had to use any morphine or pain medications for it. She did have a bowel movement yesterday and got quite nauseated after it and had some Zofran. Otherwise, has no Zofran this morning. She has not required any NG tube. She has not had any fevers. She has not had any coughing or breathing problems. OBJECTIVE: Vital Signs: Objectively, her temperature is 97.7, her pulse is 58, her weight is 59.4 kg, blood pressure 124/75, respiratory rate 18, and O2 of 92 on room air. General: She is in no acute distress. Heart: Regular rate and rhythm. S1, S2 without murmur. Lungs: Lung sounds are clear to auscultation bilaterally without crackles or wheezes. Abdomen: Mildly distended, but overall improved since yesterday. Her bowel sounds are more hypoactive in the upper quadrants when they had been hyperactive. She has mild tenderness, but no guarding or rebound. Lower abdomen is not tender or distended. Extremities: Warm and dry. No edema. Mental Status: Alert and orientated x3. LABORATORY DATA: Lab work reviewed from today does show her white count normal at 4.5, hemoglobin stable at 10.1, and platelets 230. Sodium 144, potassium 3.4, chloride 108, bicarb 27, BUN 2, creatinine 0.4, glucose 70, phosphorus 1.7, and albumin 2.6. ASSESSMENT AND PLAN: 1. Recurrent small bowel obstruction. The patient is clinically improving, although slowly. She is still distended. We will repeat some abdominal x- rays today. 2. Hypoglycemia. This seems to be improved with intake. We will continue q.i.d. checks. 3. Myotonic dystrophy, stable. 4. History of coronary artery disease, stable. 5. Hypophosphatemia and hypokalemia. We will start some K-Phos packets. We will see how she is feeling tomorrow and repeat lab work if indicated. 6. Previous hot flashes, estrogen is on hold. 7. Sleep apnea. She is using CPAP. 8. Deep vein thrombosis prophylaxis. She is on Lovenox. 9. Anemia due to hemodilution. Blood counts are stable. PLAN: At this point, the patient will continue IV Reglan. We will go ahead and stop the IV Protonix. We will see how she tolerates advancing her diet to soft. We will get the x-ray. If overall she is doing well, she may be discharged home as soon as tomorrow on oral Reglan. The patient is agreeable to this plan. X-ray did show a moderate amoutn of stool but no evidence of obstruction. Senna plus started. MKA: 08/20/2018 12:40:40 MODL: 08/20/2018 13:08:03 /[id number] MTDD
--- NOTE | 2018-08-20 13:26 | CR ---
[id number] RAD/RAD Abd Flat and Upright 2V EXAM: RAD Abd Flat and Upright 2V INDICATION: ABDOMINAL DISTENSION. COMPARISON: None. DISCUSSION: Unobstructed bowel gas pattern. No radiographically evident pneumoperitoneum. Moderate amount of retained stool within the colon. Mild levoscoliotic curvature of the lumbar spine. IMPRESSION: Moderate amount of retained stool within the colon. No evidence of obstruction. Aurelio Martin DO 08/20/18 1324 Thank you for allowing us to participate in the care of your patient.
[2018-08-20] MEDS: Potassium Phosphate,Mb-Db/Sodium Phosphate,Mb-Db Packet PO SCH ×2 (13:33→19:31)
[2018-08-20] MEDS: carBAMazepine 100 MG Cap.ER PO SCH (17:06)
[2018-08-21 05:54] VITALS: BP 111/65
[2018-08-21] MEDS ORDERED: Metoclopramide 10 MG Tab PO SCH (07:00)
[2018-08-21] MEDS: Enoxaparin 40 MG/0.4 ML Syringe SUBCUT SCH (08:00)
[2018-08-21] MEDS: Potassium Phosphate,Mb-Db/Sodium Phosphate,Mb-Db Packet PO SCH (08:00)
--- NOTE | 2018-08-21 08:51 | PCM.DCSUM1 ---
Discharge Summary - Hospital Course Free Text/Narrative:: Patient was admitted four days ago by her primary provider for recurrent small bowel obstruction. Most these have resolved with conservative therapy. She is tolerating diet without complication. Nursing reports two large bowel movements overnight. Patient's feeling back at baseline she is requesting discharge to return home. This was her primary's plan yesterday as well as long as tolerating diet. Follow-up with primary in clinic. She has upcoming podiatry surgery planned in a couple weeks I see no contraindication to this at this time. Hysterectomy in 2013 for removal of a large fibroid. She had SBO in 2016 for which she underwent detorsion, and lysis of adhesions in October 2016. Admit Macario 08/27 and then [place] 09/26 treated conservatively and it resolved. Admit Lupe 12/27 resolved spontaneously again in 03/30 also and then admit now . Diagnosis: Stroke: No - Discharge Data Discharge Date: 08/21/18 Discharge Disposition: Home, Self-Care 01 Condition: Good - Discharge Plan *PRESCRIPTION DRUG MONITORING PROGRAM REVIEWED*: Not Applicable *COPY OF PRESCRIPTION DRUG MONITORING REPORT IN PATIENT ORACIO: Not Applicable Home Medications: Home Meds Cyclobenzaprine [Flexeril] 5 mg PO TID PRN 03/20/15 [History] Aspirin [Halfprin] 81 mg PO DAILY@03/17/16 [History] Estradiol 1 mg PO DAILY@11/20/17 [History] Ibuprofen/Diphenhydramine Cit [Advil Pm Caplet] 1 tab PO BEDTIME PRN 11/20/17 [ History] L.acidoph,Paracasei, B.lactis [Probiotic] 1 cap PO DAILY@01/06/18 [History] Ondansetron [Zofran ODT] 4 mg PO Q4H PRN 01/06/18 [History] Ascorbic Acid [Vitamin C] 1,000 mg PO DAILY@08/17/18 [History] Metoclopramide HCl [Reglan] 10 mg PO TIDMEALS 08/17/18 [History] Modafinil [Provigil] 100 mg PO DAILY@08/17/18 [History] Nitroglycerin [Nitrostat] 0.4 mg SL ASDIRECTED PRN 08/17/18 [History] carBAMazepine [Tegretol XR] 200 mg PO DAILY@17 08/17/18 [History] Forms: ED Department Discharge Referrals: Roseline Powell DO [Primary Care Provider] - - Discharge Summary/Plan Comment DC Time >30 min.: No - Patient Data Vitals - Most Recent: Last Vital Signs Temp 36.4 C 08/21/18 05:51 Pulse 56 L 08/21/18 05:51 Resp 16 08/21/18 05:51 BP 111/65 08/21/18 05:51 Pulse Ox 93 L 08/21/18 05:51 Weight - Most Recent: 59.421 kg I&O - Last 24 hours: Intake & Output 08/20/18 08/21/18 08/21/18 22:59 06:59 14:59 Intake Total 420 200 240 Output Total 350 Balance 420 -150 240 Med Orders - Current: Current Medications Carbamazepine (Tegretol Xr) 200 mg PO DAILY@17 [facility] Last Admin: 08/20/18 17:06 Dose: 200 mg Cyclobenzaprine HCl (Flexeril) 5 mg PO TID PRN PRN Reason: muscle spasm or pain Last Admin: 08/17/18 16:50 Dose: 5 mg Enoxaparin Sodium (Lovenox) 40 mg SUBCUT DAILY [facility] Last Admin: 08/21/18 08:00 Dose: 40 mg Ketorolac Tromethamine (Toradol) 30 mg IVPUSH Q6H PRN PRN Reason: Pain Stop: 08/22/18 16:17 Metoclopramide HCl (Reglan) 10 mg PO TIDAC [facility] Last Admin: 08/21/18 06:06 Dose: 10 mg Morphine Sulfate (Morphine) 2 mg IVPUSH Q2H PRN PRN Reason: Pain (severe 7-10) Last Admin: 08/18/18 03:36 Dose: 2 mg Nitroglycerin (Nitrostat) 0.4 mg SL ASDIRECTED PRN PRN Reason: Chest Pain Ondansetron HCl (Zofran Odt) 4 mg PO Q4H PRN PRN Reason: Nausea/Vomiting Last Admin: 08/19/18 17:21 Dose: 4 mg Potassium Phos/Sodium Phos (Phos-Nak Powder) 1 each PO BID [facility] Last Admin: 08/21/18 08:00 Dose: 1 each Senna/Docusate Sodium (Senna Plus) 1 tab PO BID [facility] Last Admin: 08/21/18 08:00 Dose: 1 tab Sodium Chloride (Saline Flush) 10 ml FLUSH ASDIRECTED PRN PRN Reason: Keep Vein Open Last Admin: 08/19/18 21:17 Dose: 10 ml Discontinued Medications Sodium Chloride (Normal Saline) 1,000 mls @ 1,000 mls/hr IV .BOLUS ONE Stop: 08/17/18 13:38 Last Admin: 08/17/18 13:01 Dose: 1,000 mls/hr Sodium Chloride (Normal Saline) 1,000 mls @ 125 mls/hr IV ASDIRECTED [facility] Last Admin: 08/19/18 00:52 Dose: 125 mls/hr Iopamidol (Isovue-300 (61%)) 100 ml IVPUSH ONETIME ONE Stop: 08/17/18 13:55 Last Admin: 08/17/18 14:10 Dose: 100 ml Metoclopramide HCl (Reglan) 10 mg IVPUSH ONETIME ONE Stop: 08/17/18 12:45 Last Admin: 08/17/18 13:01 Dose: 10 mg Metoclopramide HCl (Reglan) 10 mg IVPUSH TID [facility] Last Admin: 08/20/18 11:32 Dose: 10 mg Morphine Sulfate (Morphine) 4 mg IVPUSH ONETIME ONE Stop: 08/17/18 12:39 Last Admin: 08/17/18 12:58 Dose: 4 mg Ondansetron HCl (Zofran) 4 mg IVPUSH ONETIME ONE Stop: 08/17/18 12:39 Last Admin: 08/17/18 15:16 Dose: Not Given Pantoprazole Sodium (Protonix Iv) 40 mg IVPUSH Q12H [facility] Last Admin: 08/19/18 03:36 Dose: 40 mg Pantoprazole Sodium (Protonix Iv) 40 mg IVPUSH BID [facility] Last Admin: 08/20/18 07:48 Dose: 40 mg
== END 2018-08-21 09:35 | disposition home or self-care (01) | DRG 247 ==
LOC: VM.ED 12:33 → VM.MS 14:20
PROVIDERS: ADMIT Internal Medicine; ATTEND Internal Medicine
DX: K56.600 Partial intestinal obstruction, unspecified as to cause (principal); I25.10 Atherosclerotic heart disease of native coronary artery without angina pectoris; G71.11 Myotonic muscular dystrophy; R09.02 Hypoxemia; H54.7 Unspecified visual loss; E78.00 Pure hypercholesterolemia, unspecified; I10 Essential (primary) hypertension; E55.9 Vitamin D deficiency, unspecified; E83.39 Other disorders of phosphorus metabolism; G47.30 Sleep apnea, unspecified; D64.89 Other specified anemias; E16.2 Hypoglycemia, unspecified; I25.2 Old myocardial infarction; Z79.82 Long term (current) use of aspirin; Z90.89 Acquired absence of other organs; Z88.5 Allergy status to narcotic agent; Z79.899 Other long term (current) drug therapy
CPT/HCPCS: 36415; 71046; 74019; 74177; 80053; 80069; 81001; 82962; 83735; 84100; 85025; 85610; 86140; 96365; 96375; 99285-25; A9270-GY; C9113; J1650; J2270; J2765; J7030; Q9967

== ENCOUNTER 2018-11-07 09:00 | Emergency (ER) | payer BC ==
[2018-11-07] MEDS ORDERED: Sodium Chloride 0.9% 10 ML Syringe FLUSH PRN (09:41)
[2018-11-07 09:43] VITALS: BP 128/70
[2018-11-07] MEDS ORDERED: fentaNYL 100 MCG/2 ML SDV IVPUSH ONE ×2 (09:46→15:11)
[2018-11-07] MEDS ORDERED: Ondansetron 4 MG/2 ML SDV IVPUSH ONE ×2 (09:46→15:12)
[2018-11-07] MEDS ORDERED: Sodium Chloride 0.9% 1,000 ML IV ONE (09:46)
[2018-11-07] MEDS ORDERED: Iopamidol 612 MG/ML 100 ML Bottle IVPUSH ONE (09:50)
--- NOTE | 2018-11-07 09:54 | EDM.PDOC ---
ED HPI GENERAL MEDICAL PROBLEM - General Chief Complaint: Abdominal Pain Stated Complaint: POSSIBLE BOWEL OBSTRUCTION Time Seen by Provider: 11/07/18 09:41 Source of Information: Reports: Patient - History of Present Illness INITIAL COMMENTS - FREE TEXT/NARRATIVE: Ángela is a 53 y/o female who presents to the ER with mid-epigastric pain that she reports started on Sunday and has progressively gotten worse. She has vomited several times. Had a BM last night, but reports it was smaller. She feels a bit distended. Upper Abdomen Pain Score (Numeric/FACES): 7 - Related Data Allergies Allergy/AdvReac Type Severity Reaction Status Date / Time hydromorphone [From Dilaudid] AdvReac Nausea Verified 11/07/18 09:16 tramadol HCl [From Ultram] AdvReac Vomiting Verified 11/07/18 09:16 Home Meds: Home Meds Cyclobenzaprine [Flexeril] 5 mg PO TID PRN 03/20/15 [History] Aspirin [Halfprin] 81 mg PO DAILY@03/17/16 [History] Estradiol 1 mg PO DAILY@11/20/17 [History] Ibuprofen/Diphenhydramine Cit [Advil Pm Caplet] 1 tab PO BEDTIME PRN 11/20/17 [ History] L.acidoph,Paracasei, B.lactis [Probiotic] 1 cap PO DAILY@01/06/18 [History] Ondansetron [Zofran ODT] 4 mg PO Q4H PRN 01/06/18 [History] Ascorbic Acid [Vitamin C] 1,000 mg PO DAILY@08/17/18 [History] Metoclopramide HCl [Reglan] 10 mg PO TIDMEALS 08/17/18 [History] Modafinil [Provigil] 100 mg PO DAILY@08/17/18 [History] Nitroglycerin [Nitrostat] 0.4 mg SL ASDIRECTED PRN 08/17/18 [History] carBAMazepine [Tegretol XR] 200 mg PO DAILY@08/17/18 [History] Past Medical History HEENT History: Reports: Impaired Vision Cardiovascular History: Reports: High Cholesterol, Hypertension, [place] Respiratory History: Reports: Sleep Apnea Gastrointestinal History: Reports: Bowel Obstruction Other Gastrointestinal History: partial bowel obstruction Genitourinary History: Reports: None GLOBAL TECHNICAL WRITER History: Reports: Other (See Below) Other GLOBAL TECHNICAL WRITER History: hysterectomy Musculoskeletal History: Reports: Muscular 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 hypophosphatemia. hypokalemia,. vitamin d deficiency Immunologic History: Reports: None Oncologic (Cancer) History: Reports: None Other Dermatologic History: sebaceous cyst - Infectious Disease History Infectious Disease History: Reports: None - Past Surgical History Head Surgeries/Procedures: Reports: None GI Surgical History: Reports: Lysis of Adhesions Female Surgical History: Reports: Hysterectomy, Other (See Below) Other Female Surgeries/Procedures: BREAST BIOPSY. BILATERAL SALPINGECTOMY, EXCISION OF UMBILICUS Other Musculoskeletal Surgeries/Procedures:: MUSCLE BIOPSY. BREAST BIOPSY. 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 Denies: Constipation, Diarrhea : Reports: No Symptoms Musculoskeletal: Reports: No Symptoms Skin: Reports: No Symptoms Neurological: Reports: No Symptoms Psychiatric: Reports: No Symptoms Hematologic/Lymphatic: Reports: No Symptoms Immunologic: Reports: No Symptoms ED EXAM, GI/ABD - Physical Exam Exam: See Below General Appearance: Alert, WD/WN, No Apparent Distress Ears: Normal External Exam Nose: Normal Inspection Throat/Mouth: Normal Inspection, Normal Lips Head: Atraumatic, Normocephalic Neck: Supple Respiratory/Chest: No Respiratory Distress, Lungs Clear, Normal Breath Sounds Cardiovascular: Normal Peripheral Pulses, Regular Rate, Rhythm, No Edema GI/Abdominal Exam: Soft, No Distention, No Mass, Other (BS slightly hypoactive in the LUQ, +tenderness in the epigastrum) (Female) Exam: Deferred Rectal (Female) Exam: Deferred Back Exam: Normal Inspection Extremities: Other (note stiffness in hand and feet) Neurological: Alert, Oriented, CN II-XII Intact, Normal Cognition Psychiatric: Normal Affect, Normal Mood Skin Exam: Warm, Dry, Intact, Normal Color Lymphatic: No Adenopathy Course - Vital Signs Text/Narrative:: The patient was seen by the AIR TUCKER. Labs and CT ordered. She was given IV fluids, Fentanyl 50 mcg IVP, and Zofran 4 mg IVP. 1207 Notified by Radiologist from [facility] that CT Abd/Pelvis WO showed Recurrent SBO. [address] [facility] to transfer patient. 125[address] Dr Spencer accepted patient for transfer. Patient remains stable. Will await bed assignment and keep patient in ER. Will transfer patient via ground ambulance to [place]. Last Recorded V/S: Last Vital Signs Temp 37.3 C 11/07/18 09:05 Pulse 84 11/07/18 09:05 Resp 18 11/07/18 09:05 BP 128/70 11/07/18 09:05 Pulse Ox 94 L 11/07/18 09:05 - Orders/Labs/Meds Orders: Active Orders 24 hr Category Date Time Status Abdomen Pelvis w Cont [CT] Stat Exams 11/07/18 09:47 Taken Sodium Chloride 0.9% [Saline Flush] Med 11/07/18 09:41 Active 10 ml FLUSH ASDIRECTED PRN Saline Lock Insert [OM.PC] Stat Oth 11/07/18 09:41 Ordered Medication Orders Sodium Chloride (Saline Flush) 10 ml FLUSH ASDIRECTED PRN PRN Reason: Keep Vein Open Labs: Laboratory Tests 11/07/18 11/07/18 11/07/18 Range/Units 09:25 09:25 09:58 WBC 8.7 (4.0-10.0) x10^3/uL RBC 4.01 (4.00-5.50) x10^6/uL Hgb 12.3 D (12.0-16.0) g/dL Hct 37.8 (33.0-47.0) % MCV 94.3 H (78.0-93.0) fL MCH 30.7 (26.0-32.0) pg MCHC 32.5 (32.0-36.0) g/dL RDW Coeff of Jose David 14.0 (10.0-15.0) % Plt Count 283 (130-400) x10^3/uL Neut % (Auto) 84.6 H (50.0-80.0) % Lymph % (Auto) 7.9 L (25.0-50.0) % Bertie % (Auto) 7.2 (2.0-11.0) % Eos % (Auto) 0.2 (0.0-4.0) % Baso % (Auto) 0.1 L (0.2-1.2) % Sodium 144 (136-145) mmol/L Potassium 3.2 L (3.5-5.1) mmol/L Chloride 105 (98-107) mmol/L Carbon Dioxide 26 (21-32) mmol/L Anion Gap 16.2 (10-20) mmol/L BUN 17 (7-18) mg/dL Creatinine 0.7 (0.55-1.02) mg/dL Est Cr Clr Drug Dosing 72.66 mL/min Estimated GFR (MDRD) > 60 Glucose 115 H (74-106) mg/dL Calcium 9.4 (8.5-10.1) mg/dL Corrected Calcium 9.88 (8.5-10.1) mg/dL Total Bilirubin 0.4 (0.2-1.0) mg/dL AST 17 (15-37) U/L ALT 36 (14-59) U/L Alkaline Phosphatase 149 H (46-116) U/L Total Protein 7.1 (6.4-8.2) g/dL Albumin 3.4 (3.4-5.0) g/dL Globulin 3.7 Albumin/Globulin Ratio 0.92 Amylase 40 (25-115) U/L Urine Color Jeana H (YELLOW) Urine Appearance Cloudy H (CLEAR) Urine pH 5.0 (5.0-8.0) Ur Specific [place] >=1.030 Urine Protein Negative (NEGATIVE) mg/dL Urine Glucose (UA) Negative (NEGATIVE) mg/dL Urine Ketones Negative (NEGATIVE) mg/dL Urine Occult Blood Negative (NEGATIVE) Urine Nitrite Negative (NEGATIVE) Urine Bilirubin Small H (NEGATIVE) Urine Urobilinogen 0.2 (0.2) EU/dL Ur Leukocyte Esterase Negative (NEGATIVE) Urine RBC 0-5 (NOT SEEN) /HPF Urine WBC 0-5 (NOT SEEN) /HPF Ur Squamous Epith Cells Few H (NEGATIVE) /HPF Amorphous Sediment Few Urine Bacteria Few H (NEGATIVE) /HPF Urine Mucus Many H (NEGATIVE) /LPF Meds: Medications Generic Name Dose Route Start Last Admin Trade Name Freq PRN Reason Stop Dose Admin Sodium Chloride 10 ml 11/07/18 09:41 Saline Flush FLUSH ASDIRECTED PRN Keep Vein Open Discontinued Medications Generic Name Dose Route Start Last Admin Trade Name Freq PRN Reason Stop Dose Admin Fentanyl 50 mcg 11/07/18 09:46 11/07/18 09:59 Sublimaze IVPUSH 11/07/18 09:47 50 mcg ONETIME ONE Administration Sodium Chloride 1,000 mls @ 999 mls/hr 11/07/18 09:46 11/07/18 09:56 Normal Saline IV 11/07/18 10:46 999 mls/hr ONETIME ONE Administration Iopamidol 100 ml 11/07/18 09:50 11/07/18 10:46 Isovue-300 (61%) IVPUSH 11/07/18 09:51 100 ml ONETIME ONE Administration Ondansetron HCl 4 mg 11/07/18 09:46 11/07/18 09:56 Zofran IVPUSH 11/07/18 09:47 4 mg ONETIME ONE Administration - Radiology Interpretation Free Text/Narrative:: CT Abd/Pelvis W=Recurrent Proximal Small Bowel Obstructions (Radiology report reviewed) Departure - Departure Time of Disposition: 12:58 Disposition: DC/Tfer to Acute Hospital 02 Condition: Good Clinical Impression: Small bowel obstruction - Discharge Information *PRESCRIPTION DRUG MONITORING PROGRAM REVIEWED*: Not Applicable *COPY OF PRESCRIPTION DRUG MONITORING REPORT IN PATIENT ORACIO: Not Applicable Forms: ED Department Discharge Additional Instructions: 1)Transfer to [facility] to Dr Spencer via ground transfer - My Orders Last 24 Hours: My Active Orders 11/07/18 09:41 Sodium Chloride 0.9% [Saline Flush] 10 ml FLUSH ASDIRECTED PRN Saline Lock Insert [OM.PC] Stat 11/07/18 09:47 Abdomen Pelvis w Cont [CT] Stat - Assessment/Plan Last 24 Hours: My Active Orders 11/07/18 09:41 Sodium Chloride 0.9% [Saline Flush] 10 ml FLUSH ASDIRECTED PRN Saline Lock Insert [OM.PC] Stat 11/07/18 09:47 Abdomen Pelvis w Cont [CT] Stat
[2018-11-07 10:18] LABS: ANION GAP 16.2 mmol/L (10-20); CHLORIDE,CL 105 mmol/L (98-107); SODIUM,NA 144 mmol/L (136-145)
--- NOTE | 2018-11-07 12:10 | CT ---
[id number] CT/CT Abdomen Pelvis W IV EXAM: CT Abdomen Pelvis W IV CLINICAL DATA: ABDOMINAL PAIN COMPARISON: CORRELATION IS MADE WITH THE EXAM OF AUGUST 17, 2018 FINDINGS: Significant proximal small bowel obstruction again is seen The uterus and ovaries have been removed The appendix is present and is normal There is no free air or free fluid There is no pneumatosis intestinalis There is no portal venous air Tiny splenic cysts are stable There is a stable mid pole left renal cyst The kidneys, adrenals, aorta, and pancreas otherwise are unremarkable The liver shows no focal abnormality The gallbladder is not distended The pelvis shows no mass or adenopathy Report was called at time of the dictation A moderate infiltrate or atelectasis is seen at the right lung base A left paraspinal thoracic sebaceous cyst is seen. IMPRESSION: RECURRENT SMALL BOWEL OBSTRUCTION Valeriy Clark MD 11/07/18 [id number] Thank you for allowing us to participate in the care of your patient.
[2018-11-07] MEDS ORDERED: Sodium Chloride 0.9% 1,000 ML IV SCH (12:15)
== END 2018-11-07 15:55 | disposition short-term general hospital (02) ==
LOC: VM.ED 09:00
DX: K56.609 Unspecified intestinal obstruction, unspecified as to partial versus complete obstruction (principal); E78.00 Pure hypercholesterolemia, unspecified; I10 Essential (primary) hypertension; I25.2 Old myocardial infarction; Z88.5 Allergy status to narcotic agent; Z79.82 Long term (current) use of aspirin; Z79.899 Other long term (current) drug therapy
CPT/HCPCS: 74177; 80053; 81001; 82150; 85025; 96361; 96374; 96375; 96376; 99285; J2405; J3010; J7030; Q9967

== ENCOUNTER 2019-06-30 01:56 | Emergency (ER) | payer BC ==
[2019-06-30] MEDS ORDERED: Sodium Chloride 0.9% 10 ML Syringe FLUSH PRN (01:59)
[2019-06-30] MEDS ORDERED: Ondansetron 4 MG/2 ML SDV IVPUSH ONE (02:00)
[2019-06-30] MEDS ORDERED: Sodium Chloride 0.9% 1,000 ML IV ONE ×2 (02:01→05:01)
[2019-06-30] MEDS ORDERED: fentaNYL 100 MCG/2 ML SDV IVPUSH ONE ×2 (02:01→07:21)
--- NOTE | 2019-06-30 02:22 | EDM.PDOC ---
ED HPI GENERAL MEDICAL PROBLEM - General Chief Complaint: Abdominal Pain Stated Complaint: Abdominal Pain Time Seen by Provider: 06/30/19 02:00 Source of Information: Reports: Patient History Limitations: Reports: No Limitations - History of Present Illness INITIAL COMMENTS - FREE TEXT/NARRATIVE: Pt. presents to ER with complaints of abdominal discomfort, vomiting, and states that she has not had a BM in several days. Pt. has a longstanding history of recurrent SBO, the last being in October of 2018. At that time she was transferred to [facility] in [place]. She did not require surgical intervention, and the obstruction resolved with bowel rest and NG. Pt. states that she has been feeling poorly for several days. States that she last vomited yesterday afternoon. Denies any history of chest pain, shortness of breath, cough, fever, or chills. She states that her last BM was Sunday evening and that it was normal. Onset Date: 06/28/19 Location: Reports: Abdomen Quality: Reports: Sharp Severity: Severe Associated Symptoms: Reports: Loss of Appetite, Nausea/Vomiting. Denies: Confusion, Chest Pain, Cough, cough w sputum, Diaphoresis, Fever/Chills, Malaise , Rash, Shortness of Breath, Syncope, Weakness - Related Data Allergies Allergy/AdvReac Type Severity Reaction Status Date / Time hydromorphone [From Dilaudid] AdvReac Nausea Verified 11/07/18 09:16 tramadol HCl [From Ultram] AdvReac Vomiting Verified 11/07/18 09:16 Home Meds: Home Meds Cyclobenzaprine [Flexeril] 5 mg PO TID PRN 03/20/15 [History] Aspirin [Halfprin] 81 mg PO DAILY@03/17/16 [History] Ibuprofen/Diphenhydramine Cit [Advil Pm Caplet] 1 tab PO BEDTIME PRN 11/20/17 [ History] estradioL [Estradiol] 1 mg PO DAILY@11/20/17 [History] L.acidoph,Paracasei, B.lactis [Probiotic] 1 cap PO DAILY@01/06/18 [History] Ondansetron [Zofran ODT] 4 mg PO Q4H PRN 01/06/18 [History] Ascorbic Acid [Vitamin C] 1,000 mg PO DAILY@08/17/18 [History] Metoclopramide HCl [Reglan] 10 mg PO TIDMEALS 08/17/18 [History] Modafinil [Provigil] 100 mg PO DAILY@08/17/18 [History] Nitroglycerin [Nitrostat] 0.4 mg SL ASDIRECTED PRN 08/17/18 [History] carBAMazepine [Tegretol XR] 200 mg PO DAILY@08/17/18 [History] Past Medical History HEENT History: Reports: Impaired Vision Cardiovascular History: Reports: High Cholesterol, Hypertension, [place] Respiratory History: Reports: Sleep Apnea Gastrointestinal History: Reports: Bowel Obstruction Other Gastrointestinal History: partial bowel obstruction Genitourinary History: Reports: None DIMENSION SPECIFICATION INSPECTOR History: Reports: Other (See Below) Other DIMENSION SPECIFICATION INSPECTOR History: hysterectomy Musculoskeletal History: Reports: Muscular 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 hypophosphatemia. hypokalemia,. vitamin d deficiency Immunologic History: Reports: None Oncologic (Cancer) History: Reports: None Other Dermatologic History: sebaceous cyst - Infectious Disease History Infectious Disease History: Reports: None - Past Surgical History Head Surgeries/Procedures: Reports: None GI Surgical History: Reports: Lysis of Adhesions Female Surgical History: Reports: Hysterectomy, Other (See Below) Other Female Surgeries/Procedures: BREAST BIOPSY. BILATERAL SALPINGECTOMY, EXCISION OF UMBILICUS Other Musculoskeletal Surgeries/Procedures:: MUSCLE BIOPSY. BREAST BIOPSY. 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 Denies: Black Stool, Bloody Stool, Hematemesis, Hematochezia : Reports: No Symptoms Musculoskeletal: Reports: No Symptoms Skin: Reports: No Symptoms Neurological: Reports: No Symptoms Psychiatric: Reports: No Symptoms Hematologic/Lymphatic: Reports: No Symptoms Immunologic: Reports: No Symptoms ED EXAM, GENERAL - Physical Exam Exam: See Below Exam Limited By: No Limitations General Appearance: Alert, WD/WN, No Apparent Distress Throat/Mouth: Normal Inspection, Normal Lips, Normal Teeth, Normal Oropharynx, Normal Voice, No Airway Compromise Head: Atraumatic, Normocephalic Neck: Normal Inspection, Supple, Non-Tender, Full Range of Motion Respiratory/Chest: No Respiratory Distress, Lungs Clear, Normal Breath Sounds, No Accessory Muscle Use, Chest Non-Tender Cardiovascular: Normal Peripheral Pulses, Regular Rate, Rhythm, No Edema, No JVD , No Murmur Peripheral Pulses: 4+: Radial (L) GI/Abdominal: Soft, Distended, Tender, Abnormal Bowel Sounds. No: Guarding, Rigid, Rebound, Mass, Hepatomegaly, Splenomegaly (Female) Exam: Deferred Rectal (Female) Exam: Deferred Back Exam: Normal Inspection, Full Range of Motion Extremities: Normal Inspection, Normal Range of Motion, Non-Tender, No Pedal Edema, Normal Capillary Refill Neurological: Alert, Oriented, CN II-XII Intact, Normal Cognition, Normal Gait, Normal Reflexes, No Motor/Sensory Deficits Psychiatric: Normal Affect, Normal Mood Skin Exam: Warm, Dry, Intact, Normal Color Lymphatic: No Adenopathy Course - Orders/Labs/Meds Orders: Active Orders 24 hr Category Date Time Status Gastrointestinal Tube Mgmt [RC] ASDIRECTED Care 06/30/19 03:01 Active Abdomen 2V AP Flat Upright [CR] Stat Exams 06/30/19 01:59 Taken Abdomen Pelvis w Cont [CT] Stat Exams 06/30/19 02:40 Taken UA RFX TITA AND CULT IF INDIC [URIN] Stat Lab 06/30/19 02:00 Ordered Sodium Chloride 0.9% [Saline Flush] Med 06/30/19 01:59 Active 10 ml FLUSH ASDIRECTED PRN NG [Nasogastric Orogastric Tube Insertion] [OM.PC] Oth 06/30/19 03:01 Ordered Routine Peripheral IV Insertion Adult [OM.PC] Routine Oth 06/30/19 01:59 Ordered Medication Orders Sodium Chloride (Saline Flush) 10 ml FLUSH ASDIRECTED PRN PRN Reason: Keep Vein Open Labs: Laboratory Tests 06/30/19 06/30/19 06/30/19 Range/Units 02:07 02:07 02:07 WBC 12.6 H (4.0-10.0) x10^3/uL RBC 4.62 (4.00-5.50) x10^6/uL Hgb 13.9 D (12.0-16.0) g/dL Hct 43.4 (33.0-47.0) % MCV 93.9 H (78.0-93.0) fL MCH 30.1 (26.0-32.0) pg MCHC 32.0 (32.0-36.0) g/dL RDW Coeff of Jose David 13.8 (10.0-15.0) % Plt Count 300 (130-400) x10^3/uL Neut % (Auto) 83.1 H (50.0-80.0) % Lymph % (Auto) 10.2 L (25.0-50.0) % [place] % (Auto) 5.9 (2.0-11.0) % Eos % (Auto) 0.7 (0.0-4.0) % Baso % (Auto) 0.1 L (0.2-1.2) % PT 9.3 L (10.0-12.8) SEC INR 0.8 L (2.0-3.5) Sodium 144 (136-145) mmol/L Potassium 3.7 (3.5-5.1) mmol/L Chloride 106 (98-107) mmol/L Carbon Dioxide 27 (21-32) mmol/L Anion Gap 14.7 (10-20) mmol/L BUN 14 (7-18) mg/dL Creatinine 0.5 L (0.55-1.02) mg/dL Est Cr Clr Drug Dosing TNP Estimated GFR (MDRD) > 60 Glucose 99 (74-106) mg/dL Lactic Acid (0.4-2.0) mmol/L Calcium 9.1 (8.5-10.1) mg/dL Corrected Calcium 9.58 (8.5-10.1) mg/dL Magnesium 2.1 (1.8-2.4) mg/dL Total Bilirubin 0.6 (0.2-1.0) mg/dL AST 18 (15-37) U/L ALT 43 (14-59) U/L Alkaline Phosphatase 207 H (46-116) U/L C-Reactive Protein 4.7 H (<=0.9) mg/dL Total Protein 6.9 (6.4-8.2) g/dL Albumin 3.4 (3.4-5.0) g/dL Globulin 3.5 Albumin/Globulin Ratio 0.97 Amylase 47 (25-115) U/L Lipase 58 L (73-393) U/L //20 Range/Units 02:07 WBC (4.0-10.0) x10^3/uL RBC (4.00-5.50) x10^6/uL Hgb (12.0-16.0) g/dL Hct (33.0-47.0) % MCV (78.0-93.0) fL MCH (26.0-32.0) pg MCHC (32.0-36.0) g/dL RDW Coeff of Jose David (10.0-15.0) % Plt Count (130-400) x10^3/uL Neut % (Auto) (50.0-80.0) % Lymph % (Auto) (25.0-50.0) % [place] % (Auto) (2.0-11.0) % Eos % (Auto) (0.0-4.0) % Baso % (Auto) (0.2-1.2) % PT (10.0-12.8) SEC INR (2.0-3.5) Sodium (136-145) mmol/L Potassium (3.5-5.1) mmol/L Chloride (98-107) mmol/L Carbon Dioxide (21-32) mmol/L Anion Gap (10-20) mmol/L BUN (7-18) mg/dL Creatinine (0.55-1.02) mg/dL Est Cr Clr Drug Dosing Estimated GFR (MDRD) Glucose (74-106) mg/dL Lactic Acid 0.6 (0.4-2.0) mmol/L Calcium (8.5-10.1) mg/dL Corrected Calcium (8.5-10.1) mg/dL Magnesium (1.8-2.4) mg/dL Total Bilirubin (0.2-1.0) mg/dL AST (15-37) U/L ALT (14-59) U/L Alkaline Phosphatase (46-116) U/L C-Reactive Protein (<=0.9) mg/dL Total Protein (6.4-8.2) g/dL Albumin (3.4-5.0) g/dL Globulin Albumin/Globulin Ratio Amylase (25-115) U/L Lipase (73-393) U/L Meds: Medications Generic Name Dose Route Start Last Admin Trade Name Freq PRN Reason Stop Dose Admin Sodium Chloride 10 ml 06/30/19 01:59 Saline Flush FLUSH ASDIRECTED PRN Keep Vein Open Discontinued Medications Generic Name Dose Route Start Last Admin Trade Name Freq PRN Reason Stop Dose Admin Fentanyl 50 mcg 06/30/19 02:01 06/30/19 02:16 Sublimaze IVPUSH 06/30/19 02:02 50 mcg ONETIME ONE Administration Sodium Chloride 1,000 mls @ 1,000 mls/hr 06/30/19 02:01 06/30/19 02:12 Normal Saline IV 06/30/19 03:00 1,000 mls/hr .BOLUS ONE Administration Iopamidol 100 ml 06/30/19 03:02 06/30/19 03:22 Isovue-300 (61%) IVPUSH 06/30/19 03:03 100 ml ONETIME ONE Administration Ondansetron HCl 4 mg 06/30/19 02:00 06/30/19 02:12 Zofran IVPUSH 06/30/19 02:01 4 mg ONETIME ONE Administration - Radiology Interpretation Free Text/Narrative:: F/U abdomen shows SBO. CT abdomen pelvis showed severe wall thickening involving majority of small bowel. Differential considerations to include infectious or inflammatory enteritis, bowel wall hemorrhage, and less likely ischemia. Departure - Departure Time of Disposition: 04:43 Disposition: DC/Tfer to Acute Hospital 02 Clinical Impression: Small bowel obstruction - Discharge Information Referrals: Roseline Powell DO [Primary Care Provider] - Forms: ED Department Discharge Sepsis Event Note - Focused Exam Date Exam was Performed: 06/30/19 Time Exam was Performed: 04:39 - My Orders Last 24 Hours: My Active Orders 06/30/19 01:59 Abdomen 2V AP Flat Upright [CR] Stat Sodium Chloride 0.9% [Saline Flush] 10 ml FLUSH ASDIRECTED PRN Peripheral IV Insertion Adult [OM.PC] Routine 06/30/19 02:00 UA RFX TITA AND CULT IF INDIC [URIN] Stat 06/30/19 02:40 Abdomen Pelvis w Cont [CT] Stat 06/30/19 03:01 Gastrointestinal Tube Mgmt [RC] ASDIRECTED NG [Nasogastric Orogastric Tube Insertion] [OM.PC] Routine - Assessment/Plan Last 24 Hours: My Active Orders 06/30/19 01:59 Abdomen 2V AP Flat Upright [CR] Stat Sodium Chloride 0.9% [Saline Flush] 10 ml FLUSH ASDIRECTED PRN Peripheral IV Insertion Adult [OM.PC] Routine 06/30/19 02:00 UA RFX TITA AND CULT IF INDIC [URIN] Stat 06/30/19 02:40 Abdomen Pelvis w Cont [CT] Stat 06/30/19 03:01 Gastrointestinal Tube Mgmt [RC] ASDIRECTED NG [Nasogastric Orogastric Tube Insertion] [OM.PC] Routine Plan: Spoke with Dr. Nunez, surgeon section plotter operator at [facility]. Pt. will be transferred via [facility] ground ambulance. Her lactic acid is normal. She is afebrile. At this point , we will hold off on starting any IV antibiotics. All questions were answered.
[2019-06-30 02:40] LABS: CHLORIDE,CL 106 mmol/L (98-107); SODIUM,NA 144 mmol/L (136-145)
[2019-06-30 02:44] LABS: ANION GAP 14.7 mmol/L (10-20)
[2019-06-30] MEDS ORDERED: Iopamidol 612 MG/ML 100 ML Bottle IVPUSH ONE (03:02)
--- NOTE | 2019-06-30 07:22 | CT ---
[id number] CT/CT Abdomen Pelvis W IV EXAM: CT Abdomen Pelvis W IV CLINICAL DATA: ABDOMINAL PAIN ELEVATED WHITE BLOOD CELL COUNT COMPARISON: CORRELATION IS MADE WITH NOVEMBER 07, 2018 FINDINGS: There is significant small bowel obstruction There is diffuse thickening of the wall of small bowel There is no free air There is no pneumatosis intestinalis or portal venous air Report was provided at the time of the exam The mesenteric vessels demonstrate normal enhancement There is no aneurysm The liver and spleen, kidneys, adrenals, pancreas, and aorta show no acute abnormalities There are benign-appearing renal cysts There is a small amount of fluid between loops of the mesentery within the mesentery. The pelvis shows no mass or adenopathy The gallbladder is not distended The appendix is thought to be normal IMPRESSION: DIFFUSE SMALL BOWEL THICKENING AND DISTENTION PRIMARY CONCERN IS FOR ISCHEMIC BOWEL SURGICAL REFERRAL IS NEEDED Valeriy Clark MD 06/30/19 [id number] Thank you for allowing us to participate in the care of your patient.
--- NOTE | 2019-06-30 07:25 | CR ---
[id number] RAD/RAD Abd Flat and Upright 2V Exam: RAD Abd Flat and Upright 2V Clinical Data: ABDOMINAL PAIN COMPARISON: CORRELATION IS MADE WITH AUGUST 20, 2018 FINDINGS: Severe small bowel obstruction is seen There is thumbprinting of the bowel There is no free air IMPRESSION: SEVERE SMALL BOWEL OBSTRUCTION SUSPECTED ISCHEMIC BOWEL Valeriy Clark MD 06/30/19 0724 Thank you for allowing us to participate in the care of your patient.
[2019-06-30 08:46] VITALS: BP 145/76; PULSE 75
== END 2019-06-30 07:44 | disposition short-term general hospital (02) ==
LOC: VM.ED 01:56
DX: K56.609 Unspecified intestinal obstruction, unspecified as to partial versus complete obstruction (principal); E78.00 Pure hypercholesterolemia, unspecified; I10 Essential (primary) hypertension; I25.2 Old myocardial infarction; Z79.82 Long term (current) use of aspirin; Z88.5 Allergy status to narcotic agent; Z79.899 Other long term (current) drug therapy
CPT/HCPCS: 74019; 74177; 80053; 81003; 82150; 83605; 83690; 83735; 85025; 85610; 86140; 96361; 96374; 96375; 96376; 99285-25; J2405; J3010; J7030; Q9967

== ENCOUNTER 2020-05-13 02:50 | Inpatient (IN) | payer SELFPAY ==
[2020-05-13] MEDS ORDERED: Lactated Ringers 1,000 ML IV ONE ×2 (03:33→04:50)
[2020-05-13] MEDS ORDERED: Ondansetron 4 MG/2 ML SDV IV ONE (03:33)
[2020-05-13] MEDS ORDERED: fentaNYL 50 MCG/ML SDV IVPUSH ONE ×2 (03:34→05:37)
--- NOTE | 2020-05-13 03:41 | EDM.PDOC ---
ED HPI GENERAL MEDICAL PROBLEM - General Chief Complaint: Abdominal Pain Stated Complaint: N/V, diarrhea, ? bowel obstruction Time Seen by Provider: 05/13/20 03:15 Source of Information: Reports: Patient History Limitations: Reports: No Limitations - History of Present Illness INITIAL COMMENTS - FREE TEXT/NARRATIVE: Patient presents emergency department today with complaints of abdominal pain and distention. 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 About 3 days ago she started some nausea vomiting and diarrhea. She started to develop abdominal pain and distention about 2 days ago. She has been unable to eat and drink much at home as she cannot keep it down. She continues to vomit at home. She does not have as much diarrhea she has had previously. Her abdomen is quite distended and she has concern for small bowel obstruction. She still has her gallbladder and appendix. She has had a hysterectomy in the past other than a twisted bowel no other surgeries to the abdomen. No recent antibiotic or travel concerning her diarrhea. No hematuria dysuria or urinary frequency. She has been eating and drinking very little the last couple of days primarily because she cannot keep it down and she has been quite discomfort. No fever no chills. No weakness dizziness lightheadedness. She does complain of palpitations and a racing heart sensation. No syncope or vertigo. No fever no chills. No cough or congestion. No Covid exposure no Covid symptoms. She has had multiple episodes of bowel o bstructions in the past other than the twisted bowel and have resolved with conservative measures. abdomen Pain Score (Numeric/FACES): 5 - Related Data Allergies Allergy/AdvReac Type Severity Reaction Status Date / Time morphine AdvReac Intermediate Other Verified 05/13/20 04:22 hydromorphone [From Dilaudid] AdvReac Nausea Verified 05/13/20 04:22 tramadol HCl [From Ultram] AdvReac Vomiting Verified 05/13/20 04:22 Home Meds: Home Meds Cyclobenzaprine [Flexeril] 5 mg PO TID PRN 03/20/15 [History] Aspirin [Halfprin] 81 mg PO DAILY@17 03/17/16 [History] estradioL [Estradiol] 1 mg PO Q48H 11/20/17 [History] L.acidoph,Paracasei, B.lactis [Probiotic] 1 cap PO DAILY@01/06/18 [History] Ondansetron [Zofran ODT] 4 mg PO Q4H PRN 01/06/18 [History] Ascorbic Acid [Vitamin C] 1,000 mg PO DAILY@08/17/18 [History] Metoclopramide HCl [Reglan] 10 mg PO TIDMEALS PRN 08/17/18 [History] Modafinil [Provigil] 100 mg PO DAILY@08/17/18 [History] Nitroglycerin [Nitrostat] 0.4 mg SL ASDIRECTED PRN 08/17/18 [History] carBAMazepine [Tegretol XR] 200 mg PO DAILY@08/17/18 [History] Ibuprofen 200 - 600 mg PO Q4H PRN 07/10/19 [History] Cyanocobalamin (Vitamin B-12) [B-12] 1,000 mcg PO DAILY 05/13/20 [History] Promethazine [Phenergan] 25 mg PO Q4H PRN 05/13/20 [History] Past Medical History HEENT History: Reports: Cataract, Impaired Vision Cardiovascular History: Reports: Heart Murmur, High Cholesterol, [place] Respiratory History: Reports: Sleep Apnea Gastrointestinal History: Reports: Bowel Obstruction Other Gastrointestinal History: partial bowel obstruction Genitourinary History: Reports: None HAIRSPRING TRUER History: Reports: Other (See Below) Other HAIRSPRING TRUER History: hysterectomy, lysis of adhesions Musculoskeletal History: Reports: Back Pain, Chronic, Muscular Dystrophy Other Musculoskeletal History: myotonic muscular dystrophy. scoliosis. hemivertebra Neurological History: Reports: Other (See Below) Other Neuro History: circadian rhythm sleep disorder, shift work type Psychiatric History: Reports: None Endocrine/Metabolic History: Reports: Vitamin D Deficiency Other Endocrine/Metabolic History: hypoglycemia Hematologic History: Reports: None Other Hematologic History: hypomagnesemia. hypophosphatemia. hypokalemia,. vitamin d deficiency Immunologic History: Reports: None Oncologic (Cancer) History: Reports: None Other Dermatologic History: sebaceous cyst - Infectious Disease History Infectious Disease History: Reports: None - Past Surgical History Head Surgeries/Procedures: Reports: None HEENT Surgical History: Reports: Cataract Surgery Cardiovascular Surgical History: Reports: None Respiratory Surgical History: Reports: None GI Surgical History: Reports: Lysis of Adhesions Female Surgical History: Reports: Hysterectomy, Other (See Below) Other Female Surgeries/Procedures: BREAST BIOPSY. BILATERAL SALPINGECTOMY, EXCISION OF UMBILICUS Musculoskeletal Surgical History: Reports: Other (See Below) Other Musculoskeletal Surgeries/Procedures:: MUSCLE BIOPSY. BREAST BIOPSY. EXCISE LESION NECK/CHEST, SUBCUTAN (SEBACEOUS CYST, NECK. lengthening achilles tendon right. sesamoidectomy Social & Family History - Family History Family Medical History: No Pertinent Family History Cardiac: Reports: Hypertension, VA Other Cardiac Family History: htn-m. VA- s,f Musculoskeletal: Reports: Arthritis, Fibromyalgia Other Musculoskeletal Family History: arthritis-m. 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 ED EXAM, GI/ABD - Physical Exam Exam: See Below Exam Limited By: No Limitations General Appearance: Alert, WD/WN, No Apparent Distress Eyes: Bilateral: EOMI Ears: Normal External Exam Nose: Normal Inspection Throat/Mouth: No: Normal Inspection (Oral mucosa is quite dry. Lips are dried and cracked as well. ) Head: Atraumatic, Normocephalic Neck: Normal Inspection, Supple, Non-Tender, Full Range of Motion Respiratory/Chest: No Respiratory Distress, Lungs Clear, Normal Breath Sounds, Chest Non-Tender Cardiovascular: Normal Peripheral Pulses, Regular Rate, Rhythm, Tachycardia, Systolic Murmur, Irregularly Irregular GI/Abdominal Exam: Distended (quite rounded and distended abd. ), Guarding (generalized. ), Tender (generalized. ), Abnormal Bowel Sounds (decreased with tympanic to percussion throughout the abd. ). No: Rigid, Rebound (Female) Exam: Deferred Rectal (Female) Exam: Deferred Back Exam: Normal Inspection, Full Range of Motion Extremities: Normal Inspection, Normal Range of Motion, Non-Tender, Normal Capillary Refill Neurological: Alert, Oriented, Normal Cognition, Normal Gait, No Motor/Sensory Deficits Psychiatric: Depressed Mood, Flat Affect Skin Exam: Dry, Intact, Cool, Pallor #1 Interpretation EKG Date: 05/13/20 Time: 03:12 Rhythm: A-Flutter Rate (Beats/Min): 128 [place]: Normal P-Wave: Present (in flutter pattern.) QRS: Normal ST-T: Normal QT: Normal Comparison: NA - No Prior EKG #2 Interpretation EKG Date: 05/13/20 Time: 05:00 Rhythm: NSR Rate (Beats/Min): 82 [place]: Normal P-Wave: Present QRS: Normal ST-T: Normal QT: Normal Comparison: Change From Previous EKG Course - Vital Signs Last Recorded V/S: Last Vital Signs Temp 98.6 F 05/13/20 18:00 Pulse 61 05/13/20 18:00 Resp 16 05/13/20 18:00 BP 97/53 L 05/13/20 18:00 Pulse Ox 90 L 05/13/20 18:00 - Orders/Labs/Meds Orders: Active Orders 24 hr Category Date Time Status Sodium Chloride 0.9% [Saline Flush] Med 05/13/20 03:33 Active 10 ml FLUSH ASDIRECTED PRN Peripheral IV Insertion Adult [OM.PC] Stat Oth 05/13/20 03:32 Ordered Medication Orders Enoxaparin Sodium (Lovenox) 40 mg SUBCUT Q24H [facility] Last Admin: 05/13/20 11:38 Dose: 40 mg Documented by: CARMELA Lactated Ringer's (Ringers, Lactated) 1,000 mls @ 75 mls/hr IV ASDIRECTED [facility] Last Admin: 05/13/20 09:27 Dose: 75 mls/hr Documented by: CARMELA Ketorolac Tromethamine (Toradol) 15 mg IVPUSH Q6H PRN PRN Reason: Pain Stop: 05/18/20 10:08 Last Admin: 05/13/20 17:43 Dose: 15 mg Documented by: Admin: 05/13/20 11:37 Dose: 15 mg Documented by: CARMELA Metoclopramide HCl (Reglan) 5 mg IVPUSH Q4H PRN PRN Reason: Nausea Metoclopramide HCl (Reglan) 5 mg IVPUSH TIDAC [facility] Last Admin: 05/13/20 16:45 Dose: 5 mg Documented by: Admin: 05/13/20 11:38 Dose: 5 mg Documented by: CARMELA Ondansetron HCl (Zofran) 4 mg IVPUSH Q8H PRN PRN Reason: Nausea Sodium Chloride (Saline Flush) 10 ml FLUSH ASDIRECTED PRN PRN Reason: Keep Vein Open Last Admin: 05/13/20 17:44 Dose: 10 ml Documented by: Admin: 05/13/20 11:37 Dose: 10 ml Documented by: Admin: 05/13/20 09:32 Dose: 10 ml Documented by: CARMELA Labs: Laboratory Tests 05/13/20 05/13/20 05/13/20 Range/Units 03:30 03:30 03:30 WBC 9.8 (4.0-10.0) x10^3/uL RBC 4.59 (4.00-5.50) x10^6/uL Hgb 13.8 (12.0-16.0) g/dL Hct 42.3 (33.0-47.0) % MCV 92.2 (78.0-93.0) fL MCH 30.1 (26.0-32.0) pg MCHC 32.6 (32.0-36.0) g/dL RDW Coeff of Jose David 13.5 (10.0-15.0) % Plt Count 329 (130-400) x10^3/uL Neut % (Auto) 79.0 (50.0-80.0) % Lymph % (Auto) 13.7 L (25.0-50.0) % [place] % (Auto) 6.6 (2.0-11.0) % Eos % (Auto) 0.5 (0.0-4.0) % Baso % (Auto) 0.2 (0.2-1.2) % PT 10.0 (9.9-12.5) SEC INR 0.9 L (2.0-3.5) APTT 22.8 L (25.6-32.8) SEC Sodium 143 (136-145) mmol/L Potassium 3.2 L (3.5-5.1) mmol/L Chloride 104 (98-107) mmol/L Carbon Dioxide 26 (21-32) mmol/L Anion Gap 16.2 H (5-15) mmol/L BUN 11 (7-18) mg/dL Creatinine 0.6 (0.55-1.02) mg/dL Est Cr Clr Drug Dosing TNP Estimated GFR (MDRD) > 60 Glucose 102 (74-106) mg/dL Lactic Acid (0.4-2.0) mmol/L Calcium 9.2 (8.5-10.1) mg/dL Corrected Calcium 9.84 (8.5-10.1) mg/dL Magnesium (1.8-2.4) mg/dL Total Bilirubin 0.6 (0.2-1.0) mg/dL AST 17 (15-37) U/L ALT 51 (14-59) U/L Alkaline Phosphatase 230 H (46-116) U/L Troponin I High Sens (<=51) ng/L C-Reactive Protein 7.2 H (<=0.9) mg/dL Total Protein 7.0 (6.4-8.2) g/dL Albumin 3.2 L (3.4-5.0) g/dL Globulin 3.8 Albumin/Globulin Ratio 0.84 Lipase 53 L (73-393) U/L TSH, Ultra Sensitive (0.358-3.74) uIU/mL Urine Color (YELLOW) Urine Appearance (CLEAR) Urine pH (5.0-8.0) Ur Specific [place] Urine Protein (NEGATIVE) mg/dL Urine Glucose (UA) (NEGATIVE) mg/dL Urine Ketones (NEGATIVE) mg/dL Urine Occult Blood (NEGATIVE) Urine Nitrite (NEGATIVE) Urine Bilirubin (NEGATIVE) Urine Urobilinogen (0.2) EU/dL Ur Leukocyte Esterase (NEGATIVE) SARS CoV-2 RNA Rapid RENO (NEGATIVE) 05/13/20 05/13/20 05/13/20 Range/Units 03:30 03:30 03:30 WBC (4.0-10.0) x10^3/uL RBC (4.00-5.50) x10^6/uL Hgb (12.0-16.0) g/dL Hct (33.0-47.0) % MCV (78.0-93.0) fL MCH (26.0-32.0) pg MCHC (32.0-36.0) g/dL RDW Coeff of Jose David (10.0-15.0) % Plt Count (130-400) x10^3/uL Neut % (Auto) (50.0-80.0) % Lymph % (Auto) (25.0-50.0) % [place] % (Auto) (2.0-11.0) % Eos % (Auto) (0.0-4.0) % Baso % (Auto) (0.2-1.2) % PT (9.9-12.5) SEC INR (2.0-3.5) APTT (25.6-32.8) SEC Sodium (136-145) mmol/L Potassium (3.5-5.1) mmol/L Chloride (98-107) mmol/L Carbon Dioxide (21-32) mmol/L Anion Gap (5-15) mmol/L BUN (7-18) mg/dL Creatinine (0.55-1.02) mg/dL Est Cr Clr Drug Dosing Estimated GFR (MDRD) Glucose (74-106) mg/dL Lactic Acid 1.1 (0.4-2.0) mmol/L Calcium (8.5-10.1) mg/dL Corrected Calcium (8.5-10.1) mg/dL Magnesium (1.8-2.4) mg/dL Total Bilirubin (0.2-1.0) mg/dL AST (15-37) U/L ALT (14-59) U/L Alkaline Phosphatase (46-116) U/L Troponin I High Sens 20 (<=51) ng/L C-Reactive Protein (<=0.9) mg/dL Total Protein (6.4-8.2) g/dL Albumin (3.4-5.0) g/dL Globulin Albumin/Globulin Ratio Lipase (73-393) U/L TSH, Ultra Sensitive 0.682 (0.358-3.74) uIU/mL Urine Color (YELLOW) Urine Appearance (CLEAR) Urine pH (5.0-8.0) Ur Specific [place] Urine Protein (NEGATIVE) mg/dL Urine Glucose (UA) (NEGATIVE) mg/dL Urine Ketones (NEGATIVE) mg/dL Urine Occult Blood (NEGATIVE) Urine Nitrite (NEGATIVE) Urine Bilirubin (NEGATIVE) Urine Urobilinogen (0.2) EU/dL Ur Leukocyte Esterase (NEGATIVE) SARS CoV-2 RNA Rapid RENO (NEGATIVE) 05/13/20 05/13/20 05/13/20 Range/Units 03:30 04:41 04:41 WBC (4.0-10.0) x10^3/uL RBC (4.00-5.50) x10^6/uL Hgb (12.0-16.0) g/dL Hct (33.0-47.0) % MCV (78.0-93.0) fL MCH (26.0-32.0) pg MCHC (32.0-36.0) g/dL RDW Coeff of Jose David (10.0-15.0) % Plt Count (130-400) x10^3/uL Neut % (Auto) (50.0-80.0) % Lymph % (Auto) (25.0-50.0) % [place] % (Auto) (2.0-11.0) % Eos % (Auto) (0.0-4.0) % Baso % (Auto) (0.2-1.2) % PT (9.9-12.5) SEC INR (2.0-3.5) APTT (25.6-32.8) SEC Sodium (136-145) mmol/L Potassium (3.5-5.1) mmol/L Chloride (98-107) mmol/L Carbon Dioxide (21-32) mmol/L Anion Gap (5-15) mmol/L BUN (7-18) mg/dL Creatinine (0.55-1.02) mg/dL Est Cr Clr Drug Dosing Estimated GFR (MDRD) Glucose (74-106) mg/dL Lactic Acid (0.4-2.0) mmol/L Calcium (8.5-10.1) mg/dL Corrected Calcium (8.5-10.1) mg/dL Magnesium 2.3 (1.8-2.4) mg/dL Total Bilirubin (0.2-1.0) mg/dL AST (15-37) U/L ALT (14-59) U/L Alkaline Phosphatase (46-116) U/L Troponin I High Sens (<=51) ng/L C-Reactive Protein (<=0.9) mg/dL Total Protein (6.4-8.2) g/dL Albumin (3.4-5.0) g/dL Globulin Albumin/Globulin Ratio Lipase (73-393) U/L TSH, Ultra Sensitive (0.358-3.74) uIU/mL Urine Color Light yellow (YELLOW) Urine Appearance Clear (CLEAR) Urine pH 5.5 (5.0-8.0) Ur Specific [place] 1.020 Urine Protein Negative (NEGATIVE) mg/dL Urine Glucose (UA) Negative (NEGATIVE) mg/dL Urine Ketones 40 H (NEGATIVE) mg/dL Urine Occult Blood Negative (NEGATIVE) Urine Nitrite Negative (NEGATIVE) Urine Bilirubin Negative (NEGATIVE) Urine Urobilinogen 0.2 (0.2) EU/dL Ur Leukocyte Esterase Negative (NEGATIVE) SARS CoV-2 RNA Rapid RENO Negative (NEGATIVE) Meds: Medications Generic Name Dose Route Start Last Admin Trade Name Juanq PRN Reason Stop Dose Admin Enoxaparin Sodium 40 mg 05/13/20 11:00 05/13/20 11:38 Lovenox SUBCUT 40 mg Q24H IRINA Administration Lactated Ringer's 1,000 mls @ 75 mls/hr 05/13/20 08:15 05/13/20 09:27 Ringers, Lactated IV 75 mls/hr ASDIRECTED IRINA Administration Ketorolac Tromethamine 15 mg 05/13/20 10:08 05/13/20 17:43 Toradol IVPUSH 05/18/20 10:08 15 mg Q6H PRN Administration Pain Metoclopramide HCl 5 mg 05/13/20 10:07 Reglan IVPUSH Q4H PRN Nausea Metoclopramide HCl 5 mg 05/13/20 11:00 05/13/20 16:45 Reglan IVPUSH 5 mg TIDAC IRINA Administration Ondansetron HCl 4 mg 05/13/20 10:07 Zofran IVPUSH Q8H PRN Nausea Sodium Chloride 10 ml 05/13/20 03:33 05/13/20 17:44 Saline Flush FLUSH 10 ml ASDIRECTED PRN Administration Keep Vein Open Discontinued Medications Generic Name Dose Route Start Last Admin Trade Name Freq PRN Reason Stop Dose Admin Fentanyl 25 mcg 05/13/20 03:34 05/13/20 03:54 Fentanyl IVPUSH 05/13/20 03:35 25 mcg ONETIME ONE Administration Fentanyl 25 mcg 05/13/20 05:37 05/13/20 05:39 Fentanyl IVPUSH 05/13/20 05:38 25 mcg ONETIME ONE Administration Lactated Ringer's 1,000 mls @ 999 mls/hr 05/13/20 03:33 05/13/20 03:38 Ringers, Lactated IV 05/13/20 04:33 999 mls/hr ONETIME ONE Administration Lactated Ringer's 1,000 mls @ 999 mls/hr 05/13/20 04:50 05/13/20 05:00 Ringers, Lactated IV 05/13/20 05:50 999 mls/hr ONETIME ONE Administration Potassium Chloride 20 meq/ 50 mls @ 50 mls/hr 05/13/20 08:10 05/13/20 09:27 Premix IV 05/13/20 09:09 50 mls/hr ONETIME ONE Administration Iopamidol 100 ml 05/13/20 05:12 05/13/20 05:12 Isovue-300 (61%) IVPUSH 05/13/20 05:13 100 ml ONETIME ONE Administration Ondansetron HCl 4 mg 05/13/20 03:33 05/13/20 03:50 Zofran IV 05/13/20 03:34 4 mg ONETIME ONE Administration - Radiology Interpretation Free Text/Narrative:: CT abdomen pelvis ideology shows relatively similar pattern but less degree of wall edema and thickening involving jejunum and less so within ileal segments. Dilated jejunum up to 4.4 cm in diameter that gradually narrows more distally. Differential diagnosis considerations include infectious or inflammatory bowel disease or less likely bowel ischemia. Low-grade partial small bowel obstruction versus bowel stasis within the differential. No pneumatosis to suggest bowel infarction. - Re-Assessments/Exams Free Text/Narrative Re-Assessment/Exam: IV established Labs drawn. Zofran 4mg IVP Fentanyl 25mcgIV she does not want much for pain control. LR 1 liter wide open Laboratory evaluation shows a normal white blood cell count of 9.8, hemoglobin 13.8, platelet 329. CMP with a mild Sanjay low potassium at 3.2, normal creatinine. Lactic acid is normal at 1.1. Liver enzymes are rather unremarkable other than a mild elevation of her alkaline phosphatase. Troponin sensitivity 20. CRP 7.2. Lipase normal at 53. TSH normal at 0.682. Urinalysis unremarkable for acute infectious process. after the patient returned from CT it was noted that her heart rate had improved and she had converted from A flutter rate in the 130s to NSR in the 90s. Repeat EKG shows the resolution of the A flutter. Continue fluids bolus for her bowel obstruction as well as her poor intake and A Flutter. CT of the abdomen per radiology concerning for partial small bowel obstruction. When I reviewed the x-ray with the findings of a partial small bowel obstruction. Her is not overtly distended. She has not been vomiting. She does not have much for pain. I do not feel that we need to place an NG at this time. We will admit her into the hospital here under acute care management for the conservative management of a partial small bowel obstruction. We will keep her n.p.o. and continue hydration. I spoke with DR. Ann Marie Powell HPI ER Course findings and concerns were relayed to her. She accepted the patient in transfer at this time. Discussed the findings and concerns with the patient. She is comfortable with the plan and her questions answered. Departure - Departure Time of Disposition: 06:15 Disposition: Admitted As Inpatient 65 Clinical Impression: Partial small bowel obstruction, Atrial flutter, paroxysmal - Discharge Information - My Orders Last 24 Hours: My Active Orders 05/13/20 03:32 Peripheral IV Insertion Adult [OM.PC] Stat 05/13/20 03:33 Sodium Chloride 0.9% [Saline Flush] 10 ml FLUSH ASDIRECTED PRN - Assessment/Plan Last 24 Hours: My Active Orders 05/13/20 03:32 Peripheral IV Insertion Adult [OM.PC] Stat 05/13/20 03:33 Sodium Chloride 0.9% [Saline Flush] 10 ml FLUSH ASDIRECTED PRN
[2020-05-13 04:10] LABS: PTT,PARTIAL THROMBOPLSTIN TIME 22.8 SEC (25.6-32.8)
[2020-05-13 04:13] LABS: CHLORIDE,CL 104 mmol/L (98-107); SODIUM,NA 143 mmol/L (136-145)
[2020-05-13 04:24] LABS: ANION GAP 16.2 mmol/L (5-15)
[2020-05-13] MEDS ORDERED: Iopamidol 612 MG/ML 100 ML Bottle IVPUSH ONE (05:12)
[2020-05-13] MEDS ORDERED: Potassium Chloride Riders 20 MEQ in Premix Bag 1 BAG IV ONE (08:10)
--- NOTE | 2020-05-13 08:35 | CT ---
[id number] CT/CT Abdomen Pelvis W IV EXAM: CT Abdomen Pelvis W IV CLINICAL DATA: BOWEL OBSTRUCTION COMPARISON: CORRELATION IS MADE WITH JUNE 30, 2019 FINDINGS: There is significant small bowel obstruction There is thickening of the bowel wall There is free fluid There is no free air There is no pneumatosis intestinalis There is no portal venous air Report provided at time of exam The stomach is distended Splenic hypodensities are seen, remaining stable, likely cysts The liver is unremarkable The adrenals, aorta, and pancreas are unremarkable There are renal cysts There is no solid renal mass or hydronephrosis The pelvis shows no mass or adenopathy. The uterus and ovaries are not seen The appendix appears normal IMPRESSION: SIGNIFICANT SMALL BOWEL OBSTRUCTION Valeriy Clark MD 05/13/20 0834 Thank you for allowing us to participate in the care of your patient.
[2020-05-13] MEDS: Lactated Ringers 1,000 ML IV SCH ×2 (09:27→23:17)
[2020-05-13] MEDS: Sodium Chloride 0.9% 10 ML Syringe FLUSH PRN ×3 (09:32→17:44)
[2020-05-13] MEDS ORDERED: Metoclopramide 10 MG/2 ML SDV IVPUSH PRN (10:07)
[2020-05-13] MEDS ORDERED: Ondansetron 4 MG/2 ML SDV IVPUSH PRN (10:07)
[2020-05-13] MEDS: Ketorolac 15 MG/ML SDV IVPUSH PRN ×2 (11:37→17:43)
[2020-05-13] MEDS: Enoxaparin 40 MG/0.4 ML Syringe SUBCUT SCH (11:38)
[2020-05-13] MEDS: Metoclopramide 10 MG/2 ML SDV IVPUSH SCH ×2 (11:38→16:45)
--- NOTE | 2020-05-13 12:01 | CR ---
[id number] RAD/RAD Chest PA And Lateral EXAM: RAD Chest PA And Lateral INDICATION: HYPOXIA. COMPARISON: August 17, 2018. DISCUSSION: Cardiomediastinal silhouette is stable in size and contour. No infiltrate, effusion, or pneumothorax. Stable bibasilar pulmonary opacifications with linear atelectasis and/or scarring. Trace right pleural effusion. Pulmonary hyperinflation. IMPRESSION: Trace right pleural effusion. Aurelio Martin DO 05/13/20 1200 Thank you for allowing us to participate in the care of your patient.
--- NOTE | 2020-05-13 12:04 | CR ---
[id number] RAD/RAD Abdomen Flat Plate 1V EXAM: RAD Abdomen Flat Plate 1V INDICATION: ABDOMINAL PAIN. COMPARISON: None. DISCUSSION: Multiple fluid and air distended loops of small bowel. Additionally there are air-fluid levels. No definite free air is identified. IMPRESSION: Multiple fluid and air distended loops of small bowel with air-fluid levels. Findings are concerning for small bowel obstruction. CT of the abdomen and pelvis could be considered for further evaluation. Aurelio Martin DO 05/13/20 [id number] Thank you for allowing us to participate in the care of your patient.
--- NOTE | 2020-05-13 15:59 | HP ---
CHIEF COMPLAINT: Abdominal pain and vomiting. HISTORY OF PRESENT ILLNESS: This is a 54-year-old female with history of multiple previous bowel obstruction, who was last admitted for this. Last admission was in 06/2019, and she was sent to [place], but did not require any surgery. The patient tells me her vomiting started on the 1st, but got worse last evening and that is when the severe abdominal pain started around 10 p.m. She has not been passing gas. She did report a bowel movement at 11, no blood. Normally, she would have a nasogastric tube, but one was not placed on her admission since she is no longer vomiting and her pain is improved after some IV fentanyl. The patient was also found to be in an atrial flutter which was new for her, but after IV fluids and 25 mcg of fentanyl, she did convert. 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 She has had a rwu-ST-pvficjmsa SD in the past as well but has not had any heart surgeries. She is currently not having any chest pain, no trouble breathing. Her stomach feels upset. She has not felt like eating or drinking anything. ALLERGIES: Include Dilaudid, morphine, and tramadol. MEDICATIONS: Include Flexeril 3 times a day as needed for muscle spasm 5 mg dose, Estrace 1 mg every other day, Phenergan as needed for nausea, Provigil 0.5 prior to going to work, Zofran as needed for vomiting, vitamin B12 1000 mcg daily, Reglan 10 mg 3 times a day as needed for bowel obstruction, Tegretol 200 mg daily and the patient admits she has not been taking, Motrin 200 to 600 as needed for pain, vitamin C 1000 daily, nitroglycerin as needed for chest pain, aspirin 81 daily, and a probiotic daily. PAST MEDICAL HISTORY: Includes chronic back pain with bilateral SI joint pain, hyperlipidemia, myotonic dystrophy type 1 since 2006, obstructive sleep apnea, coronary artery disease with previous non-ST elevation SD, small bowel obstruction is recurrent. Since having hysterectomy in 2013, she has had numerous admissions at least once a year. Scoliosis. PAST SURGICAL HISTORY: Surgically, the patient has had some sebaceous cyst removal. She has had lysis of adhesions at [facility] last in 2016. She has had the hysterectomy, ovaries remain. She has had breast biopsies, lengthening of the Achilles tendon. FAMILY HISTORY: Her mother is still alive, the patient had been helping care for her. Father is . Sister is alive, has heart disease and myotonic dystrophy. SOCIAL HISTORY: The patient is . She is a nonsmoker, nondrinker. 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 REVIEW OF SYSTEMS: General: The patient has not been losing any weight. No fever, no chills. HEENT: No cough. No trouble swallowing. Cardiac: No chest pain. She had some tachycardia, but has not noted other palpitations. Respiratory: No cough, no shortness of breath. However, she has been mildly hypoxic. GI: As stated in HPI. Otherwise, all systems reviewed and found to be negative unless otherwise stated. PHYSICAL EXAMINATION: Vital Signs: On her admission, her weight is 67.5 kg, temperature 97.9, pulse 75, blood pressure 116/70, respiratory rate 16, and O2 of 94% on 1 L. General: She is in no acute distress. Heart: Regular rate and rhythm. S1, S2 with a murmur. Lungs: Lung sounds are clear to auscultation bilaterally without crackles or wheezes, but with a decreased respiratory effort. This is possibly due to her abdomen exam, which was distended quite impressively with hypoactive bowel sounds and some generalized tenderness. Mental Status: She is alert and orientated x3. She is not anxious or depressed. Extremities: Warm and dry. No edema. IMAGING DATA: Her abdominal CT result does show her to have some stomach distention. No free air. No free fluid. There is significant bowel obstruction with thickening of the bowel wall. No solid renal masses. The liver was unremarkable. Stable splenic cyst. LABORATORY DATA: Her lab work does show her to have white count normal at 9.8, hemoglobin 13.8, platelets 329. INR 0.9. Sodium 143, potassium 3.9, chloride 104, bicarb 26, BUN 11, creatinine 0.6, glucose 102, lactic 1.1, calcium 9.2, magnesium 2.3, bilirubin 0.6, AST 17, ALT 51, alkaline phosphatase 230. Troponin 20. CRP 7.2, albumin 3.2, lipase 53. TSH 0.6. UA was negative other than 40 ketones. COVID negative. ASSESSMENT: 1. Small bowel obstruction, recurrent, likely from adhesions from previous surgeries. We will hold off on an NG tube as the patient is not actively vomiting. Given her mild hypoxia, I am going to get some chest x-rays and an upright abdominal x-ray. This morning, we will keep her n.p.o. We will keep her on IV fluids. 2. Hypokalemia. We will replace IV. Her magnesium level was checked and is normal. 3. Type 1 muscular dystrophy. She has not been taking her Tegretol. We will hold most of her medications and see how she does and then hopefully be able to advance diet as tolerated. If she gets worse, I will place an NG. 4. History of dof-OS-dazuufppf myocardial infarction. She is not having any heart symptoms. We will monitor with telemetry. 5. New onset atrial flutter. She has already converted. Discussed with patient. We will monitor with telemetry. 6. Mild aortic stenosis, based on echo in 2019. No current symptoms, but given her atrial flutter, she will need another echo. For DVT prophylaxis, I will place her on Lovenox. For pain control, I will try to avoid narcotics. I will give her a dose of Toradol if needed. I will start her on scheduled Reglan and p.r.n. Reglan and Zofran. PLAN: The patient is admitted with acute cares as above. We will recheck lab work in the morning. We will keep her n.p.o. MKA: 05/13/2020 10:14:44 MODL: 05/13/2020 15:52:59 /[id number] DANN
[2020-05-14] MEDS: Ketorolac 15 MG/ML SDV IVPUSH PRN (06:00)
[2020-05-14] MEDS: Sodium Chloride 0.9% 10 ML Syringe FLUSH PRN ×4 (06:02→17:27)
[2020-05-14] MEDS: Metoclopramide 10 MG/2 ML SDV IVPUSH SCH ×3 (06:04→17:27)
[2020-05-14] MEDS ORDERED: Dextrose 5%-0.9% NaCl 1,000 ML IV SCH (06:30)
[2020-05-14 07:04] LABS: CHLORIDE,CL 108 mmol/L (98-107); SODIUM,NA 144 mmol/L (136-145)
[2020-05-14 07:06] LABS: ANION GAP 15.3 mmol/L (5-15)
[2020-05-14] MEDS ORDERED: Potassium Chloride Riders 20 MEQ in Premix Bag 1 BAG IV ONE (08:16)
[2020-05-14] MEDS: Enoxaparin 40 MG/0.4 ML Syringe SUBCUT SCH (10:46)
[2020-05-14] MEDS: D5 1/2 NS w/ 40 mEq/L KCl 1,000 ML IV SCH (14:17)
[2020-05-14] MEDS ORDERED: Acetaminophen 325 MG Tab PO PRN (17:04)
--- NOTE | 2020-05-14 17:35 | PN ---
Progress Note for ZAKI POON Date: 05/14/2020 Room #: VM.204 SUBJECTIVE: This is hospital day #2 on a 54-year-old admitted with a bowel obstruction. The patient's pain is much better today. She still has a little nausea, but has not vomited. She did get a dose of ketorolac this morning. She has been on scheduled Reglan, has not used any p.r.n. nausea medicine. She is not passing gas, but her stomach is less distended. She would like to try some ice chips. She was very sleepy yesterday. She was up most of the night, not sleeping well. She was sleepy again this morning and her glucose was only 52. She was started on D5. She has no history of diabetes. She did get some IV potassium yesterday that did burn. She is not requiring any antibiotics. OBJECTIVE: Vital Signs: Her temperature is 98.4, pulse 62, blood pressure 109/64, respiratory rate 14, O2 of 91 on room air. General: She is in no acute distress. Heart: Regular rate and rhythm. S1, S2. Lungs: Lung sounds are clear to auscultation bilaterally without crackles or wheezes. Abdomen: Distended. Hypoactive bowel sounds, but soft, nontender. Extremities: Warm and dry. No edema. Mental Status: She is alert and orientated x3. LABORATORY DATA: Laboratory work did show her white count normal 5.7, hemoglobin 10.3, platelets 216. Sodium 144, potassium 3.3, chloride 108, bicarb 24, BUN 12, creatinine 0.5, glucose again 52, calcium 8.4, AST 12, ALT 13, alkaline phosphatase 146 which is improved, and albumin 2.5. ASSESSMENT: 1. Small bowel obstruction. Clinically, the patient is gradually improving, but slow. We will start with some ice chips. If she has bowel sounds and stomach is better later today, we will start some clear liquids. If she worsens, we will repeat x-rays and place an NG. 2. Episode of atrial flutter while in severe pain from bowel obstruction. This has resolved. She has not had any further events. We will continue with cardiac monitoring given her hypoglycemia and hypokalemia. 3. Hypokalemia. We will replace IV, but in the D5 half-normal saline. We will repeat that and a magnesium level tomorrow. 4. Hypoglycemia, probably due to poor oral intake from n.p.o. status. We will do q.i.d. Accu-Cheks. We will give her D50 if needed. 5. Anemia, likely due to hemodilution. We will check a hemoglobin again tomorrow. She has not had any bleeding. 6. Muscular dystrophy. The patient is not on any chronic medications for that. In fact, none of her home medications have even been ordered. 7. History of aph-BP-dhtelxcjk myocardial infarction remotely. She is not having any cardiac symptoms. 8. Mild aortic stenosis. The patient will need another echo as outpatient due to this episode of atrial flutter. PLAN: The patient will continue on acute cares with the IV fluids, D5 half- normal saline with 40 of KCl at 100 per hour. I will repeat lab work tomorrow. We will hold off on another potassium cocktail as it is improving. For DVT prophylaxis, she is on Lovenox. For pain control, she does have Toradol which she has only used 3 total doses at 45 mg total. We would not extend beyond 48 hours of use. We hope to avoid some narcotics and have her on p.r.n. Tylenol when she is able to take oral medications. JOSEA: 05/14/2020 17:08:50 MODL: 05/14/2020 17:24:18 /[id number]
[2020-05-15] MEDS: D5 1/2 NS w/ 40 mEq/L KCl 1,000 ML IV SCH (00:25)
[2020-05-15] MEDS: Metoclopramide 10 MG/2 ML SDV IVPUSH SCH ×2 (06:18→10:36)
[2020-05-15 08:13] LABS: CHLORIDE,CL 112 mmol/L (98-107); SODIUM,NA 146 mmol/L (136-145)
[2020-05-15 08:15] LABS: ANION GAP 8.7 mmol/L (5-15)
[2020-05-15] MEDS: Sodium Chloride 0.9% 10 ML Syringe FLUSH PRN (10:36)
[2020-05-15] MEDS: Enoxaparin 40 MG/0.4 ML Syringe SUBCUT SCH (10:36)
--- NOTE | 2020-05-15 10:52 | PN ---
Progress Note for ZAKI POON Date: 05/15/2020 Room #: VM.204 SUBJECTIVE: This is hospital day #3 on a 54-year-old admitted with a small bowel obstruction. The patient has a history of recurrent small bowel obstructions and previous surgery with adhesions. Her symptoms are clinically improving. She is still having a little bit of abdominal pain, but no nausea, no vomiting. She is passing gas and just a very small amount of stool. She has not used any pain medications since 6 a.m. on the 5th. She has had no fever or chills. No shortness of breath. OBJECTIVE: Vital Signs: Her temperature 98.9, pulse 63, blood pressure 126/88, respiratory rate 16, and O2 of 94% on room air. General: She is in no acute distress. Heart: Regular rate and rhythm. S1, S2 with murmur. Chest: Lungs sounds are clear to auscultation bilaterally without crackles or wheezes. Abdomen: Distended, but soft. Hypoactive bowel sounds. Just some minimal mid abdomen around the umbilicus tenderness, but no hernia is present. Extremities: Warm and dry. She has trace ankle edema. Mental Status: Alert and orientated x3. Lab work for her did show her white count normal at 4.7, hemoglobin stable at 10.5, platelets 216. Sodium 146, potassium 3.7, chloride 112, bicarb 21, BUN 4, creatinine 0.5, glucose 111, calcium 9.1. Magnesium 2.1. Telemetry was showing heart rates in the 50s, down into the upper 40s. She has been mostly resting. She has been tired. She has not eaten breakfast yet, but did tolerate a clear liquid diet last evening. ASSESSMENT: 1. Small bowel obstruction, recurrent. The patient is clinically improving. At this point, no need to repeat x-ray. She is off an NG tube. Advised that if she tolerates clear liquids, we can try to advance to a soft diet for supper. The patient is agreeable to this plan. We will stop her IV fluids. 2. Hypoglycemia, improved with D5. Now that she is eating and drinking again, I am going to stop the Accu-Cheks, but do them p.r.n. for any somnolence. 3. Episode of atrial flutter with severe pain during her bowel obstruction. This has not reoccurred. We will discontinue telemetry. 4. Hypokalemia. This was replaced IV. 5. Anemia, mild. Hemoglobin stable. She will continue Lovenox for DVT prophylaxis. 6. Muscular dystrophy. 7. Remote history of non ST-elevation myocardial infarction. She has not had any cardiac symptoms. 8. Mild aortic stenosis. The patient will need an outpatient echo. She is in the process of moving, but we will see if we can make those arrangements for her before she goes. PLAN: Stop IV fluids. Stop telemetry. Advance diet as able. Anticipate she may be discharged home as soon as tomorrow. MKA: 05/15/2020 09:28:49 MODL: 05/15/2020 10:42:58 /[id number]
[2020-05-15] MEDS ORDERED: Metoclopramide 10 MG Tab PO PRN (11:02)
[2020-05-15] MEDS: Metoclopramide 10 MG Tab PO SCH ×2 (11:10→16:28)
[2020-05-16] MEDS: Metoclopramide 10 MG Tab PO SCH ×2 (06:48→11:01)
--- NOTE | 2020-05-16 09:07 | DISCH ---
PRIMARY DISCHARGE DIAGNOSES: 1. Small bowel obstruction, which is recurrent and likely due to previous scar tissue from previous surgeries. 2. New-onset atrial flutter with rapid ventricular response while acutely ill. This resolved immediately after getting IV fluids and pain medication. 3. History of mild aortic stenosis. Due for repeat echo. 4. Hypoglycemia while n.p.o. She has had no further blood sugar issues since after she was put on D5. 5. Hypokalemia, replaced IV. 6. Mild anemia. 7. Muscular dystrophy. 8. Remote history of non ST-elevation myocardial infarction. No cardiac symptoms during this stay for chest pain. REASON FOR ADMISSION: On the date of admission, this 54-year-old female with a known history of recurrent small bowel obstructions had been having some symptoms during the week with nausea and vomiting and began having severe pain, so came into the emergency room. She was given IV fluids and fentanyl and had a CT and at that time did convert from A-flutter with RVR to a normal sinus rhythm. The patient was kept n.p.o., but was no longer vomiting, so did not require an NG. She received IV nausea medication including Zofran and Reglan. The patient required no further doses of IV fentanyl during her stay. She did have about 3 doses of IV Toradol 15 mg, but none in 48 hours of discharge. She also was given IV Reglan, but none within 24 hours of discharge because her IV did come out and she was getting scheduled Reglan 5 mg 3 times a day with meals. The patient was initially started on a clear liquid diet on the evening of the , tolerated that well and last evening started on soft foods, which she tolerated well and is hoping to be discharged today. The patient had just mild nausea yesterday and mild pain. Today, she is feeling much better.with no pain or nausea but hasn't been up yet and hasn't passed gas today but was passing yesterday. She had been up and walking in the halls yesterday. She has had no bowel movement yet. DISCHARGE PLANS AND INSTRUCTIONS: She will follow up in the clinic with Dr. Powell in 2 weeks' time or with her new provider if moving prior. She will get an echo test to check her heart at some point for followup of AFib. No lab work is due as long as she feels good. No new medications for AFib. No medication changes were made other than scheduling the Reglan 5 mg 3 times a day for 1 week, then 2 times a day for 1 week, then once daily for 1 week, and then as needed. She does not normally take her Tegretol, but that was all kept on her list and she is on aspirin as well, should continue and no potassium supplements were needed. Patient informs me that her disability did recently go through so hopefully that will include her medical for her recent stay I did advice her I would pass that along to the vp digital marketing social media and crm as well. DISCHARGING LABS: Potassium 3.7. Hemoglobin 10.5, which was stable. Kidney function normal. Blood sugar up to 111. Magnesium 2.1. PHYSICAL EXAMINATION: Discharging Vital Signs: Temperature of 97.9, pulse 60, blood pressure 113/57, respiratory rate 16, and O2 of 93% on room air. She did have a chest x-ray during her stay, which did not show any concerns for pneumonia. Her initial hypoxia was felt to be related likely to the abdominal distention. She just had a little bit of trace pleural effusion on that x-ray. General: She is in no acute distress. Heart: Regular rate and rhythm. S1, S2 with murmur. Chest: Lungs sounds are clear to auscultation bilaterally without crackles or wheezes. Abdomen: Nondistended. Positive bowel sounds. Nontender. Extremities: Warm and dry. No edema. Mental Status: Alert and orientated x3. MKA: 05/16/2020 06:56:14 MODL: 05/16/2020 08:59:10 /[id number] [facility] CENTERFabricio
[2020-05-16 10:07] VITALS: BP 120/65; PULSE 62
[2020-05-16] MEDS: Enoxaparin 40 MG/0.4 ML Syringe SUBCUT SCH (11:01)
== END 2020-05-16 10:50 | disposition home or self-care (01) | DRG 389 ==
LOC: VM.ED 02:50 → VM.MS 06:16
PROVIDERS: ADMIT Nurse Practitioner Family; ATTEND Internal Medicine
DX: K56.51 Intestinal adhesions [bands], with partial obstruction (principal); I48.92 Unspecified atrial flutter; E87.6 Hypokalemia; D64.9 Anemia, unspecified; G71.00 Muscular dystrophy, unspecified; E78.5 Hyperlipidemia, unspecified; G47.33 Obstructive sleep apnea (adult) (pediatric); I25.10 Atherosclerotic heart disease of native coronary artery without angina pectoris; I35.0 Nonrheumatic aortic (valve) stenosis; H54.7 Unspecified visual loss; E78.00 Pure hypercholesterolemia, unspecified; E55.9 Vitamin D deficiency, unspecified; E83.42 Hypomagnesemia; E16.2 Hypoglycemia, unspecified; Z20.822 Contact with and (suspected) exposure to COVID-19; I25.2 Old myocardial infarction; Z79.82 Long term (current) use of aspirin; Z79.899 Other long term (current) drug therapy; Z90.710 Acquired absence of both cervix and uterus
CPT/HCPCS: 36415; 71046; 74018; 74177; 80048; 80053; 81003; 82962; 83605; 83690; 83735; 84443; 84484; 85025; 85610; 85730; 86140; 93005; 93010; 96374; 96375; 96376; 99284; 99285-25; A9270-GY; J1650; J1885; J2405; J2765; J3010; J3480; J7042; J7120; Q9967; U0002